=== PATIENT | female | born 1940 | race Caucasian/White ===

== ENCOUNTER 2016-09-01 09:43 | Inpatient (IN) | payer OTHER ==
--- NOTE | 2016-09-01 10:01 | PDOC ---
History of Present Illness - History of Present Illness Initial Comments: 09/01/16 14:32 The patient is a 75 year old female, with a significant past medical history of alzheimer's/dementia, hypercholesterolemia, CAD s/p 2 stents, colon polyps, diverticulosis, and osteoarthritis, who presents to the emergency department with 2 days of cough and fever as per the patients . The patient is a poor historian secondary to her dementia. As per the patients , he reports he has been experiencing similar symptoms prior to his wifes onset 2 days ago, went to his PCP yesterday and given a prescription for azithromycin for both him and his yesterday. As per the patients , his is not aware of person, place or time and does not ambulate without assistance at baseline. He reports her cough x 2 days, but because she is weak she is unable to productively cough. also has symptoms of a cough. She denies shortness of breath, headache and dizziness. She denies chills, nausea, vomit, diarrhea and constipation. She denies dysuria, frequency, urgency and hematuria. Allergies: NKDA PCP - Dr. Hercules <Cathie Mars - Last Filed: 09/01/16 14:32> <Andrea Hoff - Last Filed: 09/02/16 08:22> - General Chief Complaint: SIRS, Suspected/Possible Stated Complaint: FLU LIKE SYMPTOMS Time Seen by Provider: 09/01/16 09:59 Past History <Cathie Mars - Last Filed: 09/01/16 14:32> - Past Medical History Anemia: Yes Cardiac Disorders: Yes (cardiac stents) Dementia: Yes Disorders: Yes (uti) HTN: Yes Hypercholesterolemia: Yes - Surgical History Cardiac Surgery: Yes (stent) Cholecystectomy: Yes (lap ifeanyi) - Psycho/Social/Smoking Cessation Hx Anxiety: No Suicidal Ideation: No Smoking History: Never smoked Have you smoked in the past 12 months: No If you are a former smoker, when did you quit?: 1 year ago Information on smoking cessation initiated: No 'Breaking Loose' booklet given: 10/15/12 Hx Alcohol Use: No Drug/Substance Use Hx: No Substance Use Type: None <Andrea Hoff - Last Filed: 09/02/16 08:22> - Past Medical History Allergies/Adverse Reactions: Allergies Allergy/AdvReac Type Severity Reaction Status Date / Time No Known Allergies Allergy Verified 09/01/16 09:53 Home Medications: Ambulatory Orders Alendronate Na [Fosamax] 70 mg PO Q7D 09/01/16 Ascorbic Acid [Vitamin C -] 500 mg PO DAILY 09/01/16 Aspirin [ASA -] 81 mg PO DAILY 09/01/16 Bisacodyl [Dulcolax] 10 mg PO DAILY 09/01/16 Lisinopril [Zestril] 40 mg PO DAILY 09/01/16 Memantine HCl [Namenda -] 10 mg PO DAILY 09/01/16 Multivitamin [Poly-Vitamin] 1 each PO DAILY 09/01/16 Review of Systems - Review of Systems Able to Perform ROS?: No (unobtainable due to demen) <Cathie Mars - Last Filed: 09/01/16 14:32> *Physical Exam - Vital Signs Last Vital Signs Temp Pulse Resp BP Pulse Ox 101.7 F H 123 H 20 131/85 97 09/01/16 09:54 09/01/16 09:54 09/01/16 09:54 09/01/16 09:54 09/01/16 09:54 - Physical Exam Comments: 09/01/16 14:33 GENERAL: The patient is awake, alert. Nontoxic - in no acute distress. HEAD: Normocephalic, atraumatic. EYES: extraocular movements intact, sclera anicteric, conjunctiva clear. ENT: Normal voice, Moist mucous membranes. NECK: Normal range of motion, supple LUNGS: (+) faint crackles at left base. Breath sounds equal, No wheezes, no rhonchi, HEART: tachycardic, without murmur, rub or gallop. ABDOMEN: Soft, nontender, normoactive bowel sounds. No guarding, no rebound.No CVA tenderness EXTREMITIES: Normal range of motion, no edema. No clubbing or cyanosis. No cords, erythema, or tenderness. NEUROLOGICAL: No facial assymetry, PSYCH: Normal mood, normal affect. SKIN: hot to touch, Dry, normal turgor, <Cathie Mars - Last Filed: 09/01/16 14:32> - Vital Signs Last Vital Signs Temp Pulse Resp BP Pulse Ox 101.7 F H 123 H 20 131/85 97 09/01/16 09:54 09/01/16 09:54 09/01/16 09:54 09/01/16 09:54 09/01/16 09:54 <Andrea Hoff - Last Filed: 09/02/16 08:22> Heart Score/ECG Review - ECG Impressions Comment:: 09/01/16 10:31 Twelve-lead EKG was performed and reviewed by me. There is normal sinus rhythm with a rate of 114 The axis is normal. The intervals are normal. There is normal R wave progression There are no ST or T wave abnormalities. Impression: sinus tachycardia <Andrea Hoff - Last Filed: 09/02/16 08:22> ED Treatment Course - LABORATORY CBC & Chemistry Diagram: 09/01/16 10:00 09/01/16 10:13 - ADDITIONAL ORDERS Additional order review: Laboratory Results 09/01/16 10:30 VBG pH 7.44 H POC VBG pCO2 36.4 L POC VBG pO2 37.9 Mixed VBG HCO3 24.5 09/01/16 10:00 RBC 3.85 MCV 91.3 MCHC 33.0 RDW 14.1 MPV 9.1 Neutrophils % 77.9 Lymphocytes % 5.6 L D Monocytes % 16.0 H Eosinophils % 0.0 D Basophils % 0.5 - RADIOLOGY Radiograph Interpretation: 09/01/16 11:00 CXR was read by Dr. Bergman at 10:15 Impression: No evidence of active pulmonary disease <Cathie Mars - Last Filed: 09/01/16 14:32> - LABORATORY CBC & Chemistry Diagram: 09/01/16 10:00 09/01/16 10:13 - RADIOLOGY Radiology Studies Ordered: Category Date Time Status CHEST X-RAY PORTABLE* [RAD] Stat Radiology 09/01/16 10:00 Ordered <Andrea Hoff - Last Filed: 09/02/16 08:22> Medical Decision Making - Medical Decision Making 09/01/16 14:33 Dr. Rivas was paged at 13:25 requesting a call back for doctor to doctor consult regarding patient admission. Dr. Chandni Tate returned the call on Dr. Rivas's behalf and the patient's case was discussed at 13:33. <Cathie Mars - Last Filed: 09/01/16 14:32> - Medical Decision Making 09/01/16 10:25 75y F hx of advanced dementia, htn, cad s/p 2 stents, HL, presents for fever/ cough. The history is limited from the patient due to her dementia and provided primarily from her . cough x 2 days, dry, on exam pt has some rales at the L base, pt noted febrile to 102 and tachy to 120s. sepsis protocol initiated suspect pna, vs influenza will ck cxr, ekg, influenza, labs will obtain UA to r/o UTI A portion of this note was documented by scribe services under my direction. I have reviewed the details of the note, within reason, and agree with the documentation with the following case summary and management plan written by me 09/01/16 12:52 labs reviewed lactic acid normal pt influenza + and UA + for UTI will give ctx, tamiflu will admit for further managment 09/01/16 13:[address] tate for inflenza and uti agreed wit hadmission for further management stable for med surg Case discussed in detail with admitting physician including history, physical exam and ancillary studies. Admitting physician has assumed care for the patient, will follow all pending diagnostics and will complete the evaluation and treatment. CRITICAL CARE DOCUMENTATION: I spent ~40 minutes of Critical Care time, excluding separately billable procedures, involving high complexity decision making to assess, manipulate and support vital system function(s) to treat single or multiple vital organ system failure and/or to prevent further life threatening deterioration of the patient' s condition. <Andrea Hoff - Last Filed: 09/02/16 08:22> *DC/Admit/Observation/Transfer - Attestations Scribe Attestion: 09/01/16 11:02 Documentation prepared by Cathie Mars, acting as biomedical engineering aide for Andrea Hoff MD <Cathie Mars - Last Filed: 09/01/16 14:32> - Discharge Dispostion Admit: Yes <Andrea Hoff - Last Filed: 09/02/16 08:22> Diagnosis at time of Disposition: Influenza A Sepsis Qualifiers: Sepsis type: sepsis due to unspecified organism Qualified Code(s): A41.9 - Sepsis, unspecified organism Urinary tract infection Qualifiers: Urinary tract infection type: site unspecified Hematuria presence: with hematuria Qualified Code(s): N39.0 - Urinary tract infection, site not specified - Discharge Dispostion Condition at time of disposition: Stable - Referrals
[2016-09-01 10:35] LABS: BASOPHIL 0.5 % (0-2.0); MCH 30.1 pg (25.7-33.7); MEAN CELL VOLUME 91.3 fl (80-96); MEAN PLT VOLUME 9.1 fl (7.5-11.1); NEUTROPHILS 77.9 % (42.8-82.8); PLATELET COUNT 270 K/MM3 (134-434); RDW 14.1 % (11.6-15.6); WHITE BLOOD COUNT 11.7 K/mm3 (4.0-10.0)
[2016-09-01 10:36] LABS: VENOUS BLOOD GAS HCO3 24.5 meq/L (19-25); VENOUS PH 7.44 (7.32-7.42)
[2016-09-01 11:04] LABS: ALBUMIN 3.8 g/dl (3.4-5.0); ANION GAP 10 (8-16); BILIRUBIN,TOTAL 0.4 mg/dL (0.2-1.0); CALCIUM 9.1 mg/dL (8.5-10.1); CO2 25 mmol/L (21-32); CREATININE 1.3 mg/dL (0.55-1.02); GLUCOSE,RANDOM 153 mg/dL (74-106); SGOT/AST 20 U/L (15-37); SGPT/ALT 21 U/L (12-78); TOT PROT 7.8 g/dl (6.4-8.2)
[2016-09-01 11:07] LABS: ALK PHOS 82 U/L (45-117); TROPONIN I < 0.02 ng/ml (0.00-0.05)
[2016-09-01 11:20] LABS: INR 1.23 (0.82-1.09); PROTHROMBIN TIME (PATIENT) 13.6 SEC (9.98-11.88)
[2016-09-01 11:22] LABS: ACTIVATED PTT 32.8 SECONDS (26.9-34.4)
--- NOTE | 2016-09-01 11:37 | EKG ---
Test Reason : Blood Pressure : / mmHG Vent. Rate : 114 BPM Atrial Rate : 114 BPM P-R Int : 160 ms QRS Dur : 082 ms QT Int : 322 ms P-R-T Axes : 055 004 062 degrees QTc Int : 443 ms SINUS TACHYCARDIA OTHERWISE NORMAL ECG WHEN COMPARED WITH ECG OF 27-JUL-2013 09:11, NO SIGNIFICANT CHANGE WAS FOUND Confirmed by MYLA CHRISTOPHER MD ([id number]) on 09/01/2016 11:37:39 AM Referred By: Confirmed By:MYLA CHRISTOPHER MD
[2016-09-01] MEDS ORDERED: ACETAMINOPHEN 1000 MG/100 ML VIAL (NON FORMULARY) IVPB ONE (11:54)
[2016-09-01] MEDS ORDERED: SODIUM CHLORIDE 500 ML IV STA (11:55)
[2016-09-01] MEDS ORDERED: ACETAMINOPHEN INJECTION 100 ML IVPB ONE (12:08)
[2016-09-01 12:21] LABS: URINE APPEARANCE CLEAR; URINE BILIRUBIN NEGATIVE (NEGATIVE); URINE COLOR LT. YELLOW; URINE GLUCOSE (UA) NEGATIVE (NEGATIVE); URINE KETONE NEGATIVE (NEGATIVE); URINE PROTEIN NEGATIVE (NEGATIVE); URINE UROBILINOGEN 0.2 E.U/dl E.U./dl (0.2-1.0)
[2016-09-01 12:23] LABS: URINE BLOOD 3+ (NEGATIVE); URINE LEUK ESTERASE 1+ (NEGATIVE); URINE NITRITE POSITIVE (NEGATIVE)
[2016-09-01 12:43] LABS: URINE BACTERIA MANY /hpf (NONE SEEN)
[2016-09-01 12:47] LABS: URINE RBC 0-3 /hpf (0-3); URINE WBC 20-30 /hpf (3-5)
[2016-09-01 12:48] LABS: URINE AMORPHOUS SEDIMENT FEW URATES
[2016-09-01] MEDS ORDERED: OSELTAMIVIR PHOSPHATE 75 MG CAPSULE PO ONE (12:52)
[2016-09-01] MEDS ORDERED: CEFTRIAXONE 1 GM in DEXTROSE 5%-WATER - 50 ML IVPB ONE (12:52)
[2016-09-01] MEDS ORDERED: OSELTAMIVIR PHOSPHATE 75 MG CAPSULE ONE (12:57)
[2016-09-01] MEDS ORDERED: CEFTRIAXONE 50 ML ONE (12:57)
[2016-09-01] MEDS ORDERED: ALBUTEROL SO4 2.5/IPRATROPIUM 0.5 INH SOL 3 ML VIAL.NEB. NEB PRN (13:43)
[2016-09-01] MEDS: SODIUM CHLORIDE 0.45% 1,000 ML IV SCH (14:35)
[2016-09-01 16:44] VITALS: BMI 22.8
[2016-09-01] MEDS: OSELTAMIVIR PHOSPHATE 30 MG CAPSULE PO SCH (21:34)
[2016-09-02] MEDS ORDERED: ACETAMINOPHEN 325 MG TABLET (FP) PO PRN (08:20)
--- NOTE | 2016-09-02 08:24 | HP ---
Admitting History and Physical - Primary Care Physician PCP: Chuck Hercules - Past Medical History ...: No - Advance Directives Advance Directives: Yes: Health Care Proxy - Smoking History Smoking history: Never smoked Have you smoked in the past 12 months: No If you are a former smoker, when did you quit?: 1 year ago - Alcohol/Substance Use Hx Alcohol Use: No <Anna Rivas - Last Filed: 09/02/16 08:23> - Admission History of Present Illness: The patient is a 75-year-old woman with a significant past medical history of alzheimer's/dementia, hypercholesterolemia, coronary artery disease status post 2 stents, colon polyps, diverticulosis, and osteoarthritis, who presented to the emergency department yesterday with 2 day history of a weak non-productive cough and fever as per the patients . At baseline, the patient is not aware of person, place or time and does not ambulate without assistance. History was obtained by patient's and is limited as patient's suffers also from dementia. He also reports experiencing similar symptoms. Patient found to have Influenza, as well as possible UTI. Patient also had a fever of 102 in the Emergency Room. Patient also was dehydrated. Patient was started on fluid, antibiotics as well as Tamiflu. Patient seen and examined today. Chart reviewed. Comfortable. Not in distress. Poor historian. History Source: Patient Limitations to Obtaining History: Dementia <Vera Webb - Last Filed: 09/02/16 09:39> Home Medications <Anna Rivas - Last Filed: 09/02/16 08:23> <Vera Webb - Last Filed: 09/02/16 09:39> - Allergies Allergies/Adverse Reactions: Allergies Allergy/AdvReac Type Severity Reaction Status Date / Time No Known Allergies Allergy Verified 09/01/16 09:53 - Home Medications Home Medications: Ambulatory Orders Alendronate Na [Fosamax] 70 mg PO Q7D 09/01/16 Ascorbic Acid [Vitamin C -] 500 mg PO DAILY 09/01/16 Aspirin [ASA -] 81 mg PO DAILY 09/01/16 Bisacodyl [Dulcolax] 10 mg PO DAILY 09/01/16 Lisinopril [Zestril] 40 mg PO DAILY 09/01/16 Memantine HCl [Namenda -] 10 mg PO DAILY 09/01/16 Multivitamin [Poly-Vitamin] 1 each PO DAILY 09/01/16 Review of Systems Unable to obtain ROS, reason: Clincal Condition. See HP <Vera Webb - Last Filed: 09/02/16 09:39> Physical Examination Vital Signs: Vital Signs Temperature 100.6 F H 09/02/16 06:00 Pulse Rate 90 09/02/16 06:00 Respiratory Rate 20 09/02/16 06:00 Blood Pressure 133/74 09/02/16 06:00 O2 Sat by Pulse Oximetry (%) 99 09/02/16 07:59 <Anna Rivas - Last Filed: 09/02/16 08:23> Vital Signs: Vital Signs Temperature 100.6 F H 09/02/16 06:00 Pulse Rate 90 09/02/16 06:00 Respiratory Rate 20 09/02/16 06:00 Blood Pressure 133/74 09/02/16 06:00 O2 Sat by Pulse Oximetry (%) 99 09/02/16 07:59 Constitutional: Yes: No Distress, Calm HENT: Yes: Other (Throat is Congested.) Neck: Yes: Supple Cardiovascular: Yes: Regular Rate and Rhythm Respiratory: Yes: CTA Bilaterally Gastrointestinal: Yes: Soft Edema: No Neurological: Yes: Other (Awake.) Labs: CBC, BMP 09/02/16 08:15 09/02/16 08:15 <TraceyVera - Last Filed: 09/02/16 09:39> Imaging - Results Chest X-ray: Report Reviewed EKG: Report Reviewed <TraceyVera - Last Filed: 09/02/16 09:39> Problem List - Problems (1) Influenza A Code(s): J10.1 - FLU DUE TO OTH IDENT INFLUENZA VIRUS W OTH RESP MANIFEST (2) Urinary tract infection Code(s): N39.0 - URINARY TRACT INFECTION, SITE NOT SPECIFIED Qualifiers: Urinary tract infection type: site unspecified Hematuria presence: with hematuria Qualified Code(s): N39.0 - Urinary tract infection, site not specified (3) Dementia Code(s): F03.90 - UNSPECIFIED DEMENTIA WITHOUT BEHAVIORAL DISTURBANCE <Vera Webb - Last Filed: 09/02/16 09:39> Assessment/Plan - Tamiflu. - Antibiotics. - Hydration. - Droplet precautions. - DVT Prophylaxis. - Follow up cultures. - Will follow. Documentation prepared by Vera Webb, acting as a medical insurance claims processor for Anna Rivas MD. <Vera Webb - Last Filed: 09/02/16 09:39>
[2016-09-02 08:42] LABS: BASOPHIL 0.7 % (0-2.0); EOSINOPHIL 0.1 % (0-4.5); MCH 30.4 pg (25.7-33.7); MCHC 33.5 g/dl (32.0-36.0); MEAN CELL VOLUME 90.8 fl (80-96); MEAN PLT VOLUME 9.1 fl (7.5-11.1); NEUTROPHILS 66.8 % (42.8-82.8); PLATELET COUNT 214 K/MM3 (134-434); RDW 13.8 % (11.6-15.6); WHITE BLOOD COUNT 7.8 K/mm3 (4.0-10.0)
[2016-09-02 09:00] LABS: ALBUMIN 3.3 g/dl (3.4-5.0); BILIRUBIN,TOTAL 0.3 mg/dL (0.2-1.0); CALCIUM 8.4 mg/dL (8.5-10.1); TOT PROT 6.5 g/dl (6.4-8.2)
[2016-09-02] MEDS ORDERED: PT OWN MED DRAWER 7, Y5N ONE (09:11)
[2016-09-02] MEDS: OSELTAMIVIR PHOSPHATE 30 MG CAPSULE PO SCH ×2 (09:18→21:02)
[2016-09-02] MEDS: HEPARIN NA (PORCINE) 5,000 UNITS/ML 1ML VIAL SQ SCH ×2 (09:20→21:02)
[2016-09-02] MEDS: CEFTRIAXONE 50 ML IVPB SCH (09:20)
[2016-09-02] MEDS ORDERED: ACETAMINOPHEN 650 MG SUPP.RECT PR PRN (09:40)
[2016-09-02] MEDS: SODIUM CHLORIDE 0.45% 1,000 ML IV SCH (11:28)
[2016-09-03] MEDS: SODIUM CHLORIDE 0.45% 1,000 ML IV SCH (04:24)
[2016-09-03] MEDS ORDERED: PT OWN MED DRAWER 7, Y5N ONE ×2 (09:45→23:15)
[2016-09-03] MEDS: CEFTRIAXONE 50 ML IVPB SCH (09:53)
[2016-09-03] MEDS: OSELTAMIVIR PHOSPHATE 30 MG CAPSULE PO SCH ×2 (09:55→23:27)
[2016-09-03] MEDS: HEPARIN NA (PORCINE) 5,000 UNITS/ML 1ML VIAL SQ SCH ×2 (09:57→23:27)
--- NOTE | 2016-09-03 12:05 | PN ---
Progress Note, Physician Chief Complaint: confused no distress - Current Medication List Current Medications: Active Medications Acetaminophen (Tylenol -) 650 mg PO Q4H PRN PRN Reason: FEVER OR PAIN Last Admin: 09/02/16 09:17 Dose: 650 mg Acetaminophen (Tylenol Suppository -) 650 mg [place] Q6H PRN PRN Reason: FEVER OR PAIN Albuterol/Ipratropium (Duoneb -) 1 amp NEB TIDR PRN PRN Reason: ASTHMA Heparin Sodium (Porcine) (Heparin -) 5,000 unit SQ BID [facility] Last Admin: 09/03/16 09:57 Dose: 5,000 unit Ceftriaxone Sodium (Rocephin 1gm Ivpb (Pre-Docked)) 50 mls @ 100 mls/hr IVPB DAILY [facility] Last Admin: 09/03/16 09:53 Dose: 100 mls/hr Sodium Chloride (1/2 Normal Saline) 1,000 mls @ 75 mls/hr IV ASDIR [facility] Last Admin: 09/03/16 04:24 Dose: 75 mls/hr Oseltamivir Phosphate (Tamiflu -) 30 mg PO BID [facility] Stop: 09/05/16 22:01 Last Admin: 09/03/16 09:55 Dose: 30 mg - Objective Vital Signs: Vital Signs Temperature 98.2 F 09/03/16 07:54 Pulse Rate 85 09/03/16 07:54 Respiratory Rate 18 09/03/16 07:54 Blood Pressure 125/66 09/03/16 07:54 O2 Sat by Pulse Oximetry (%) 99 09/03/16 09:00 Constitutional: Yes: No Distress Cardiovascular: Yes: Regular Rate and Rhythm Respiratory: Yes: Diminished Gastrointestinal: Yes: Normal Bowel Sounds, Soft. No: Tenderness Edema: No Labs: CBC, BMP 09/02/16 08:15 09/02/16 08:15 INR, PTT INR 1.23 (0.82-1.09) H 09/01/16 10:26 Problem List - Problems (1) Influenza A Code(s): J10.1 - FLU DUE TO OTH IDENT INFLUENZA VIRUS W OTH RESP MANIFEST (2) Sepsis Code(s): A41.9 - SEPSIS, UNSPECIFIED ORGANISM Qualifiers: Sepsis type: sepsis due to unspecified organism Qualified Code(s): A41.9 - Sepsis, unspecified organism (3) Urinary tract infection Code(s): N39.0 - URINARY TRACT INFECTION, SITE NOT SPECIFIED Qualifiers: Urinary tract infection type: acute cystitis Hematuria presence: with hematuria Qualified Code(s): N30.01 - Acute cystitis with hematuria (4) Dementia Code(s): F03.90 - UNSPECIFIED DEMENTIA WITHOUT BEHAVIORAL DISTURBANCE Assessment/Plan PLAN On iv antibiotics Tamiflu Pt is at baseline mental status OOB continue with meds She is eating and hydrating well, dc fluids
[2016-09-04] MEDS ORDERED: PT OWN MED DRAWER 7, Y5N ONE ×2 (08:57→21:02)
[2016-09-04] MEDS: HEPARIN NA (PORCINE) 5,000 UNITS/ML 1ML VIAL SQ SCH ×2 (08:59→21:07)
[2016-09-04] MEDS: OSELTAMIVIR PHOSPHATE 30 MG CAPSULE PO SCH ×2 (08:59→21:07)
[2016-09-04] MEDS: CEFTRIAXONE 50 ML IVPB SCH (08:59)
--- NOTE | 2016-09-04 09:01 | PN ---
Progress Note, Physician Chief Complaint: confused no distress has good appetite no complaints - Current Medication List Current Medications: Active Medications Acetaminophen (Tylenol -) 650 mg PO Q4H PRN PRN Reason: FEVER OR PAIN Last Admin: 09/02/16 09:17 Dose: 650 mg Acetaminophen (Tylenol Suppository -) 650 mg [place] Q6H PRN PRN Reason: FEVER OR PAIN Albuterol/Ipratropium (Duoneb -) 1 amp NEB TIDR PRN PRN Reason: ASTHMA Heparin Sodium (Porcine) (Heparin -) 5,000 unit SQ BID [facility] Last Admin: 09/03/16 23:27 Dose: 5,000 unit Ceftriaxone Sodium (Rocephin 1gm Ivpb (Pre-Docked)) 50 mls @ 100 mls/hr IVPB DAILY [facility] Last Admin: 09/03/16 09:53 Dose: 100 mls/hr Oseltamivir Phosphate (Tamiflu -) 30 mg PO BID [facility] Stop: 09/05/16 22:01 Last Admin: 09/03/16 23:27 Dose: 30 mg - Objective Vital Signs: Vital Signs Temperature 97.4 F L 09/04/16 06:22 Pulse Rate 86 09/04/16 06:22 Respiratory Rate 20 09/04/16 06:22 Blood Pressure 120/64 09/04/16 06:22 O2 Sat by Pulse Oximetry (%) 99 09/03/16 22:00 Constitutional: Yes: No Distress Cardiovascular: Yes: Regular Rate and Rhythm Respiratory: Yes: Diminished Gastrointestinal: Yes: Normal Bowel Sounds, Soft. No: Distention, Tenderness Edema: No Neurological: Yes: Confusion Labs: CBC, BMP 09/02/16 08:15 09/02/16 08:15 INR, PTT INR 1.23 (0.82-1.09) H 09/01/16 10:26 Assessment/Plan PLAN On iv antibiotics Tamiflu Pt is at baseline mental status OOB continue with meds Heparin sc for DVT prophylaxis physical therapy evaluation
--- NOTE | 2016-09-05 08:23 | PN ---
Progress Note (short form) - Note Progress Note: Subjective Patient seen and examined. Chart reviewed. Still coughing. Having low grade fever. Eating OK Awake/Confused. Objective Last Vital Signs Temp Pulse Resp BP Pulse Ox 99.7 F H 81 20 138/73 98 09/05/16 06:00 09/05/16 06:00 09/05/16 06:00 09/05/16 06:00 09/04/16 21:00 CBC, BMP 09/02/16 08:15 09/02/16 08:15 Physical Exam Constitutional: Yes: No Distress Cardiovascular: Yes: Regular Rate and Rhythm Respiratory: Yes: Diminished Gastrointestinal: Yes: Normal Bowel Sounds, Soft. No: Distention, Tenderness Edema: No Neurological: Yes: Confusion Assessment and Plan Continue iv antibiotics Tamiflu Pt is at baseline mental status OOB continue with meds Heparin sc for DVT prophylaxis physical therapy evaluation Continue droplet precuations. Check labs today. Will follow. Documentation prepared by Kiah Toussaint, acting as a biomedical equipment support specialist for Anna Rivas MD.
[2016-09-05] MEDS: OSELTAMIVIR PHOSPHATE 30 MG CAPSULE PO SCH ×2 (10:03→21:07)
[2016-09-05] MEDS: CEFTRIAXONE 50 ML IVPB SCH (10:03)
[2016-09-05] MEDS: HEPARIN NA (PORCINE) 5,000 UNITS/ML 1ML VIAL SQ SCH ×2 (10:03→21:07)
[2016-09-05 11:19] LABS: BASOPHIL 0.8 % (0-2.0); EOSINOPHIL 0.1 % (0-4.5); MCH 30.3 pg (25.7-33.7); MCHC 32.8 g/dl (32.0-36.0); MEAN CELL VOLUME 92.1 fl (80-96); MEAN PLT VOLUME 9.9 fl (7.5-11.1); NEUTROPHILS 75.8 % (42.8-82.8); PLATELET COUNT 244 K/MM3 (134-434); WHITE BLOOD COUNT 9.8 K/mm3 (4.0-10.0)
[2016-09-05 11:21] LABS: ALBUMIN 3.2 g/dl (3.4-5.0); BILIRUBIN,TOTAL 0.3 mg/dL (0.2-1.0)
[2016-09-05] MEDS ORDERED: PT OWN MED DRAWER 7, Y5N ONE (21:02)
--- NOTE | 2016-09-06 09:19 | PN ---
Progress Note, Physician Chief Complaint: confused no distress has good appetite no complaints spoke with Dr perales-- pt's PMD-- she is AAOx1 very confused at baseline She requires total care Did not do well at all during PT - Current Medication List Current Medications: Active Medications Acetaminophen (Tylenol -) 650 mg PO Q4H PRN PRN Reason: FEVER OR PAIN Last Admin: 09/02/16 09:17 Dose: 650 mg Acetaminophen (Tylenol Suppository -) 650 mg [place] Q6H PRN PRN Reason: FEVER OR PAIN Albuterol/Ipratropium (Duoneb -) 1 amp NEB TIDR PRN PRN Reason: ASTHMA Heparin Sodium (Porcine) (Heparin -) 5,000 unit SQ BID [facility] Last Admin: 09/05/16 21:07 Dose: 5,000 unit Ceftriaxone Sodium (Rocephin 1gm Ivpb (Pre-Docked)) 50 mls @ 100 mls/hr IVPB DAILY [facility] Last Admin: 09/05/16 10:03 Dose: 100 mls/hr - Objective Vital Signs: Vital Signs Temperature 98.4 F 09/06/16 06:00 Pulse Rate 69 09/06/16 06:00 Respiratory Rate 20 09/06/16 06:00 Blood Pressure 133/57 09/06/16 06:00 O2 Sat by Pulse Oximetry (%) 96 09/05/16 08:00 Constitutional: Yes: No Distress Cardiovascular: Yes: Regular Rate and Rhythm Respiratory: Yes: Diminished Gastrointestinal: Yes: Normal Bowel Sounds, Soft. No: Abdomen, Obese, Distention, Tenderness Edema: No Labs: CBC, BMP 09/05/16 10:45 09/05/16 10:45 INR, PTT INR 1.23 (0.82-1.09) H 09/01/16 10:26 Problem List - Problems (1) Influenza A Code(s): J10.1 - FLU DUE TO OTH IDENT INFLUENZA VIRUS W OTH RESP MANIFEST (2) Sepsis Code(s): A41.9 - SEPSIS, UNSPECIFIED ORGANISM Qualifiers: Sepsis type: sepsis due to unspecified organism Qualified Code(s): A41.9 - Sepsis, unspecified organism (3) Urinary tract infection Code(s): N39.0 - URINARY TRACT INFECTION, SITE NOT SPECIFIED Qualifiers: Urinary tract infection type: acute cystitis Hematuria presence: with hematuria Qualified Code(s): N30.01 - Acute cystitis with hematuria (4) Dementia Code(s): F03.90 - UNSPECIFIED DEMENTIA WITHOUT BEHAVIORAL DISTURBANCE Assessment/Plan PLAN On iv antibiotics completed Tamiflu Pt is at baseline mental status OOB continue with meds Heparin sc for DVT prophylaxis physical therapy evaluation left message for pt's son in [place]-- Jasen Dutton -- [phone] will need to discuss about pt's dc plan
[2016-09-06] MEDS: HEPARIN NA (PORCINE) 5,000 UNITS/ML 1ML VIAL SQ SCH ×2 (10:18→21:19)
[2016-09-06] MEDS: CEFTRIAXONE 50 ML IVPB SCH (10:18)
--- NOTE | 2016-09-07 09:39 | DS ---
Physical Examination Vital Signs: Vital Signs Temperature 99.2 F 09/07/16 05:51 Pulse Rate 88 09/07/16 05:51 Respiratory Rate 18 09/07/16 05:51 Blood Pressure 136/63 09/07/16 05:51 O2 Sat by Pulse Oximetry (%) 95 09/06/16 21:00 Constitutional: Yes: No Distress, Calm Cardiovascular: Yes: Regular Rate and Rhythm Respiratory: Yes: CTA Bilaterally Gastrointestinal: Yes: Normal Bowel Sounds, Soft, Abdomen, Obese. No: Distention, Tenderness Edema: No Labs: CBC, BMP 09/05/16 10:45 09/05/16 10:45 Discharge Summary Reason For Visit: UTI,INFLUENZA,SEPSIS Current Active Problems Influenza A (Acute) Sepsis (Acute) Urinary tract infection (Acute) Hospital Course: Admitted for UTI and Influenza She was started on antibiotics for UTI and tamiflu-- completed Tamiflu She has advanced dementia which is worsening Physical therapy evaluated pt- needs total assistance. Short term rehab recommended , but pt's significant other and son had decided to have her be discharged home, resume her services, [employer]. She will also need home physical therapy. I have sent PO antibiotics to pharmacy for UTI-- she will need to follow up with Dr Hercules in 2 weeks, stable for dc home. Condition: Improved - Instructions Referrals: Chuck Hercules MD [Primary Care Provider] - Disposition: HOME - Home Medications Comprehensive Discharge Medication List: Ambulatory Orders Alendronate Na [Fosamax (Weekly)] 70 mg PO Q7D 09/01/16 Ascorbic Acid [Vitamin C -] 500 mg PO DAILY 09/01/16 Aspirin [ASA -] 81 mg PO DAILY 09/01/16 Bisacodyl [Dulcolax] 10 mg PO DAILY 09/01/16 Lisinopril [Zestril] 40 mg PO DAILY 09/01/16 Memantine HCl [Namenda -] 10 mg PO DAILY 09/01/16 Multivitamin [Poly-Vitamin] 1 each PO DAILY 09/01/16 Cefuroxime Axetil [Ceftin -] 250 mg PO BID #8 tablet 09/07/16
[2016-09-07] MEDS: HEPARIN NA (PORCINE) 5,000 UNITS/ML 1ML VIAL SQ SCH (10:40)
[2016-09-07] MEDS: CEFTRIAXONE 50 ML IVPB SCH (10:40)
[2016-09-07 11:46] VITALS: BP 134/93; PULSE 95; TEMP 98.2
== END 2016-09-07 11:30 | disposition home or self-care (01) | DRG 872 ==
LOC: SUPCPDRO 09:43 → JER 09:43 → JERBED 14:10 → J6S 17:30
PROVIDERS: ADMIT Internal Medicine; ATTEND Internal Medicine
DX: A41.9 Sepsis, unspecified organism (principal); N39.0 Urinary tract infection, site not specified; G30.9 Alzheimer's disease, unspecified; F02.80 Dementia in other diseases classified elsewhere, unspecified severity, without behavioral disturbance, psychotic disturbance, mood disturbance, and anxiety; J11.1 Influenza due to unidentified influenza virus with other respiratory manifestations; E78.00 Pure hypercholesterolemia, unspecified; I25.10 Atherosclerotic heart disease of native coronary artery without angina pectoris; K63.5 Polyp of colon; K57.90 Diverticulosis of intestine, part unspecified, without perforation or abscess without bleeding; M19.90 Unspecified osteoarthritis, unspecified site; Z95.5 Presence of coronary angioplasty implant and graft
CPT/HCPCS: 36415; 71010-TC; 80053; 81003; 81015; 82550; 82803; 83605; 84484; 85025; 85610; 85730; 86850; 86900; 86901; 87040; 87086; 87186; 87804; 93005; 93010; 97116-GP; 97161-GP; 99283-25; J1644

== ENCOUNTER 2017-02-24 09:55 | Inpatient (IN) | payer OTHER ==
[2017-02-24] MEDS ORDERED: ACETAMINOPHEN 1000 MG/100 ML VIAL (NON FORMULARY) IVPB ONE (10:14)
[2017-02-24] MEDS ORDERED: SODIUM CHLORIDE 1,000 ML IV STA (10:14)
--- NOTE | 2017-02-24 10:16 | PDOC ---
Attending Attestation - Resident Resident Name: Judy Dean - ED Attending Attestation I have performed the following: I have examined & evaluated the patient, The case was reviewed & discussed with the resident, I agree w/resident's findings & plan, Exceptions are as noted - HPI HPI: Fever from home 02/24/17 11:34 - Physicial Exam PE: Non Toxic, VSS 02/24/17 11:35 - Medical Decision Making 02/24/17 11:[address] Dean's Assessment and Plan
[2017-02-24] MEDS ORDERED: ACETAMINOPHEN INJECTION 100 ML IVPB ONE (10:23)
--- NOTE | 2017-02-24 10:56 | PDOC ---
History of Present Illness - General Chief Complaint: Tachycardia Stated Complaint: FEVER Time Seen by Provider: 02/24/17 10:05 History Source: Family Exam Limitations: Dementia - History of Present Illness Initial Comments: 76yo F with PMH of dementia, UTI, osteoporosis presents c/o ams, fever, cough. Pt's son at bedside provided history, as pt has dementia. Pt has had AMS for 3- 4 days. Yesterday symptoms of non-productive cough, sneezing and fever worsened. Pt's family tried to get an antibiotic for pt a week ago, and were finally able to fill a prescription for Ceftin yesterday. Pt was last admitted to hospital in August 2016 for UTI/sepsis and pt's symptoms are similar today as compared to that admission per pt's son. Pt's family speaks Algerian, pen and pencil repairer was used. 02/24/17 10:48 Associated Symptoms: reports: cough, fever/chills. denies: diaphoresis Past History - Past Medical History Allergies/Adverse Reactions: Allergies Allergy/AdvReac Type Severity Reaction Status Date / Time No Known Allergies Allergy Verified 02/24/17 10:49 Home Medications: Ambulatory Orders Alendronate Na [Fosamax (Weekly)] 70 mg PO Q7D 09/01/16 Ascorbic Acid [Vitamin C -] 500 mg PO DAILY 09/01/16 Aspirin [ASA -] 81 mg PO DAILY 09/01/16 Bisacodyl [Dulcolax] 10 mg PO DAILY 09/01/16 Lisinopril [Zestril] 40 mg PO DAILY 09/01/16 Memantine HCl [Namenda -] 10 mg PO DAILY 09/01/16 Multivitamin [Poly-Vitamin] 1 each PO DAILY 09/01/16 Cefuroxime Axetil [Ceftin -] 250 mg PO BID #8 tablet 09/07/16 Anemia: Yes Cardiac Disorders: Yes (cardiac stents) Dementia: Yes GI Disorders: Yes (colon polyps, diverticulosis) Disorders: Yes (uti) HTN: Yes Hypercholesterolemia: Yes Other medical history: osteoporosis - Surgical History Cardiac Surgery: Yes (stent) Cholecystectomy: Yes (lap ifeanyi) - Psycho/Social/Smoking Cessation Hx Anxiety: No Suicidal Ideation: No Smoking History: Never smoked Have you smoked in the past 12 months: No 'Breaking Loose' booklet given: 04/29/13 Hx Alcohol Use: No Drug/Substance Use Hx: No Substance Use Type: None Hx Substance Use Treatment: No Review of Systems - Review of Systems Able to Perform ROS?: No (dementia) *Physical Exam - Physical Exam General Appearance: Yes: Nourished, Appropriately Dressed, Mild Distress HEENT: positive: EOMI, Normal Voice. negative: Pale Conjunctivae, Scleral Icterus (R), Scleral Icterus (L), Rhinorrhea Neck: positive: Trachea midline, Supple. negative: Lymphadenopathy (R), Lymphadenopathy (L) Respiratory/Chest: positive: Lungs Clear, Normal Breath Sounds. negative: Respiratory Distress, Accessory Muscle Use Cardiovascular: positive: Regular Rhythm, S1, S2, Tachycardia. negative: Murmur Gastrointestinal/Abdominal: positive: Tenderness (Left upper and lower abdomen tender to palpation - suffers chronic constipation per son). negative: Distended, Guarding, Rebound, Mass Extremity: positive: Normal Inspection. negative: Swelling, Calf Tenderness, Erythema Integumentary: positive: Dry, Warm. negative: Rash Neurologic: positive: Alert, Confused, Disoriented ED Treatment Course - LABORATORY CBC & Chemistry Diagram: 02/24/17 10:22 02/24/17 11:00 - RADIOLOGY Radiology Studies Ordered: Category Date Time Status CHEST X-RAY PORTABLE* [RAD] Stat Radiology 02/24/17 10:14 Ordered Medical Decision Making - Medical Decision Making 76yo F with PMH of dementia, UTI, osteoporosis presents c/o AMS, fever, cough. History obtained from son with use of a pen and pencil repairer, Algerian speaking. SIRS x 2 at this point with temperature of 101.5 and HR of 96. Pt last admitted to this hospital in August 2016 for UTI/sepsis, and son reports similar symptoms today. CBC with diff, CMP, lactic acid, blood cultures, VBG, INR, Ptt UA, urine culture CXR EKG - reveals normal rhythm tachycardia Tylenol 1,000mg IVPB for fever NS 1 L bolus given 02/24/17 11:03 02/24/17 11:14 O2 sat was 92% at 10:38am vitals check. O2 sat is now 100%. 02/24/17 13:30 CXR reveals some central crowding, no significant interval change. CBC with diff -> leukocytosis 12.0 lactic acid wnl UA (+) for UTI -> Rocephin 1g IVPB given PCP: Dr. Hercules -> admits to Dr. Chandni Rosas Pt to be admitted to med-surg inpatient for sepsis x 3 (tachycardia, wbc, fever , uti). Dr. Rosas contacted and accepted admission. *DC/Admit/Observation/Transfer Diagnosis at time of Disposition: Sepsis, Urinary tract infection - Discharge Dispostion Condition at time of disposition: Guarded Admit: Yes
[2017-02-24 11:01] VITALS: BMI 21.2
[2017-02-24 11:08] LABS: BASOPHIL 0.5 % (0-2.0); EOSINOPHIL 0.1 % (0-4.5); MCH 28.3 pg (25.7-33.7); MCHC 32.5 g/dl (32.0-36.0); NEUTROPHILS 75.7 % (42.8-82.8); PLATELET COUNT 266 K/MM3 (134-434); RDW 17.1 % (11.6-15.6)
[2017-02-24 11:16] LABS: URINE APPEARANCE CLOUDY; URINE BILIRUBIN NEGATIVE (NEGATIVE); URINE BLOOD 2+ (NEGATIVE); URINE COLOR YELLOW; URINE GLUCOSE (UA) NEGATIVE (NEGATIVE); URINE KETONE NEGATIVE (NEGATIVE); URINE NITRITE POSITIVE (NEGATIVE); URINE PROTEIN NEGATIVE (NEGATIVE); URINE UROBILINOGEN NEGATIVE mg/dL (0.2-1.0)
[2017-02-24 11:21] LABS: URINE LEUK ESTERASE 3+ (NEGATIVE)
[2017-02-24 11:21] LABS: VENOUS BLOOD GAS HCO3 25.1 meq/L (19-25); VENOUS PH 7.43 (7.32-7.42)
[2017-02-24 11:23] LABS: URINE MUCUS RARE; URINE RBC 38 /hpf (0-3); URINE WBC 477 /hpf (3-5)
[2017-02-24 11:35] LABS: INR 1.18 (0.82-1.09)
[2017-02-24 11:38] LABS: ACTIVATED PTT 28.8 SECONDS (26.9-34.4)
[2017-02-24] MEDS ORDERED: CEFTRIAXONE 1 GM in DEXTROSE 5%-WATER - 50 ML IVPB ONE (11:40)
[2017-02-24] MEDS ORDERED: CEFTRIAXONE 50 ML ONE (11:44)
[2017-02-24 11:57] LABS: ALBUMIN 3.9 g/dl (3.4-5.0); ALK PHOS 103 U/L (45-117); ANION GAP 11 (8-16); BILIRUBIN,TOTAL 0.4 mg/dL (0.2-1.0); CALCIUM 9.5 mg/dL (8.5-10.1); CO2 26 mmol/L (21-32); CREATININE 1.2 mg/dL (0.55-1.02); GLUCOSE,RANDOM 138 mg/dL (74-106); SGOT/AST 15 U/L (15-37); SGPT/ALT 27 U/L (12-78)
[2017-02-24] MEDS: POTASSIUM CHLORIDE 10 MEQ in SODIUM CHLORIDE 0.45% 1,000 ML IVPB SCH (18:46)
[2017-02-24] MEDS ORDERED: LISINOPRIL 20 MG TABLET (FP) PO ONE (19:45)
[2017-02-25] MEDS: POTASSIUM CHLORIDE 10 MEQ in SODIUM CHLORIDE 0.45% 1,000 ML IVPB SCH ×2 (04:07→06:59)
--- NOTE | 2017-02-25 09:27 | EKG ---
Test Reason : Blood Pressure : / mmHG Vent. Rate : 106 BPM Atrial Rate : 106 BPM P-R Int : 146 ms QRS Dur : 082 ms QT Int : 328 ms P-R-T Axes : 051 -03 044 degrees QTc Int : 435 ms SINUS TACHYCARDIA OTHERWISE NORMAL ECG WHEN COMPARED WITH ECG OF 01-SEP-2016 10:11, NO SIGNIFICANT CHANGE WAS FOUND Confirmed by MD SHEA, NICHOLAS ([id number]) on 02/25/2017 9:26:55 AM Referred By: Confirmed By:NICHOLAS VALDIVIA MD
[2017-02-25] MEDS ORDERED: DEXTROSE 5%-WATER - 50 ML IVPB ONE (09:44)
[2017-02-25] MEDS ORDERED: cefTRIAXone SODIUM 1 GM VIAL ONE (09:44)
[2017-02-25] MEDS: BISACODYL 5 MG TABLET.DR (FP) PO SCH (09:56)
[2017-02-25] MEDS: MEMANTINE HCL 10 MG TABLET (FP) PO SCH (09:56)
[2017-02-25] MEDS: CEFTRIAXONE 1 GM in DEXTROSE 5%-WATER - 50 ML IVPB SCH (09:56)
[2017-02-25] MEDS: ASPIRIN 81 MG CHEWABLE TABLETS PO SCH (09:56)
[2017-02-25] MEDS: LISINOPRIL 20 MG TABLET (FP) PO SCH (09:56)
--- NOTE | 2017-02-25 10:57 | HP ---
Admitting History and Physical - Primary Care Physician PCP: Chuck Hercules - Admission Chief Complaint: ams History of Present Illness: ER HISTORY - History of Present Illness Initial Comments: 76yo F with PMH of dementia, UTI, osteoporosis presents c/o ams, fever, cough. Pt's son at bedside provided history, as pt has dementia. Pt has had AMS for 3- 4 days. Yesterday symptoms of non-productive cough, sneezing and fever worsened. Pt's family tried to get an antibiotic for pt a week ago, and were finally able to fill a prescription for Ceftin yesterday. Pt was last admitted to hospital in August 2016 for UTI/sepsis and pt's symptoms are similar today as compared to that admission per pt's son. Pt's family speaks Georgian, automotive design layout drafter was used. Pt examined by me in the floors Baseline dementia, total care, needs assistance for ambulation- also dementia- pt known from previous admission for UTI She is sleepy but opens eyes to name no distress ate food with assistance History Source: Medical Record Limitations to Obtaining History: Dementia - Past Medical History [employer]: Yes: Dementia Cardiovascular: Yes: HTN Musculoskeletal: Yes: Other (osteoporosis) - Smoking History Smoking history: Never smoked Have you smoked in the past 12 months: No If you are a former smoker, when did you quit?: 1 year ago - Alcohol/Substance Use Hx Alcohol Use: No Home Medications - Allergies Allergies/Adverse Reactions: Allergies Allergy/AdvReac Type Severity Reaction Status Date / Time No Known Allergies Allergy Verified 02/24/17 10:49 - Home Medications Home Medications: Ambulatory Orders Alendronate Na [Fosamax (Weekly)] 70 mg PO Q7D 09/01/16 Ascorbic Acid [Vitamin C -] 500 mg PO DAILY 09/01/16 Aspirin [ASA -] 81 mg PO DAILY 09/01/16 Bisacodyl [Dulcolax] 10 mg PO DAILY 09/01/16 Lisinopril [Zestril] 40 mg PO DAILY 09/01/16 Memantine HCl [Namenda -] 10 mg PO DAILY 09/01/16 Multivitamin [Poly-Vitamin] 1 each PO DAILY 09/01/16 Cefuroxime Axetil [Ceftin -] 250 mg PO BID #8 tablet 09/07/16 Review of Systems - Review of Systems Constitutional: reports: Fever, Weakness. denies: Chills Physical Examination Vital Signs: Vital Signs Temperature 98.4 F 02/25/17 06:17 Pulse Rate 89 02/25/17 06:17 Respiratory Rate 20 02/25/17 06:17 Blood Pressure 126/58 02/25/17 06:17 O2 Sat by Pulse Oximetry (%) 95 02/25/17 05:34 Constitutional: Yes: No Distress, Calm Cardiovascular: Yes: Regular Rate and Rhythm Respiratory: Yes: CTA Bilaterally Gastrointestinal: Yes: Normal Bowel Sounds, Soft. No: Distention, Hemorrhoids, Tenderness Edema: No Psychiatric: Yes: Alert Labs: Laboratory Results - last 24 hr 02/24/17 02/25/17 02/25/17 11:00 10:45 10:45 WBC 7.5 D RBC 3.98 Hgb 11.5 Hct 34.7 MCV 87.1 MCH 28.9 MCHC 33.2 RDW 17.1 H Plt Count 207 D MPV 9.1 Neutrophils % 61.0 Lymphocytes % 19.2 D Monocytes % 16.8 H Eosinophils % 2.2 D Basophils % 0.8 Sodium 141 Potassium 4.0 Chloride 105 Carbon Dioxide 27 Anion Gap 9 BUN 10 D Creatinine 1.0 Creat Clearance w eGFR 54.05 Random Glucose 148 H Calcium 8.7 Total Bilirubin 0.3 D AST 16 ALT 23 Alkaline Phosphatase 87 Total Protein 7.0 Albumin 3.2 L Urine Color Yellow Urine Appearance Cloudy Urine pH 5.0 Ur Specific [place] 1.020 Urine Protein Negative Urine Glucose (UA) Negative Urine Ketones Negative Urine Blood 2+ H Urine Nitrite Positive Urine Bilirubin Negative Urine Urobilinogen Negative Ur Leukocyte Esterase 3+ H D Urine RBC 38 Urine WBC 477 Ur Epithelial Cells Rare Urine Mucus Rare Imaging - Results Chest X-ray: Image Reviewed (no infiltrates) EKG: Image Reviewed (sinus tachycardia) Problem List - Problems (1) Sepsis Code(s): A41.9 - SEPSIS, UNSPECIFIED ORGANISM (2) Urinary tract infection Code(s): N39.0 - URINARY TRACT INFECTION, SITE NOT SPECIFIED Qualifiers: (3) Dementia Code(s): F03.90 - UNSPECIFIED DEMENTIA WITHOUT BEHAVIORAL DISTURBANCE Assessment/Plan PLAN IV fluids IV antibiotics assist with feeding continue with meds DVT prophylaxis-- Lovenox
[2017-02-25 11:11] LABS: BASOPHIL 0.8 % (0-2.0); EOSINOPHIL 2.2 % (0-4.5); MCH 28.9 pg (25.7-33.7); MCHC 33.2 g/dl (32.0-36.0); MEAN CELL VOLUME 87.1 fl (80-96); MEAN PLT VOLUME 9.1 fl (7.5-11.1); PLATELET COUNT 207 K/MM3 (134-434); RDW 17.1 % (11.6-15.6); WHITE BLOOD COUNT 7.5 K/mm3 (4.0-10.0)
[2017-02-25] MEDS ORDERED: DEXTROSE 5%-0.45% SALINE 1,000 ML IV SCH (11:30)
[2017-02-25 11:42] LABS: ALBUMIN 3.2 g/dl (3.4-5.0); ALK PHOS 87 U/L (45-117); ANION GAP 9 (8-16); BILIRUBIN,TOTAL 0.3 mg/dL (0.2-1.0); CALCIUM 8.7 mg/dL (8.5-10.1); CO2 27 mmol/L (21-32); GLUCOSE,RANDOM 148 mg/dL (74-106); SGOT/AST 16 U/L (15-37); SGPT/ALT 23 U/L (12-78)
--- NOTE | 2017-02-26 09:43 | PN ---
Progress Note, Physician Chief Complaint: more alert and awake today ate food - Current Medication List Current Medications: Active Medications Aspirin (Asa -) 81 mg PO DAILY [facility] Last Admin: 02/25/17 09:56 Dose: 81 mg Bisacodyl (Dulcolax -) 10 mg PO DAILY [facility] Last Admin: 02/25/17 09:56 Dose: 10 mg Enoxaparin Sodium (Lovenox -) 40 mg SQ DAILY [facility] Ceftriaxone Sodium 1 gm/ (Dextrose) 50 mls @ 100 mls/hr IVPB DAILY [facility] Last Admin: 02/25/17 09:56 Dose: 100 mls/hr Dextrose/Sodium Chloride (D5-1/2ns -) 1,000 mls @ 50 mls/hr IV ASDIR [facility] Lisinopril (Prinivil) 40 mg PO DAILY [facility] Last Admin: 02/25/17 09:56 Dose: 40 mg Memantine (Namenda -) 10 mg PO DAILY [facility] Last Admin: 02/25/17 09:56 Dose: 10 mg - Objective Vital Signs: Vital Signs Temperature 97.8 F 02/26/17 05:30 Pulse Rate 67 02/26/17 05:30 Respiratory Rate 18 02/26/17 05:30 Blood Pressure 137/64 02/26/17 05:30 O2 Sat by Pulse Oximetry (%) 98 02/25/17 22:34 Constitutional: Yes: No Distress, Calm Cardiovascular: Yes: Regular Rate and Rhythm Respiratory: Yes: CTA Bilaterally, Wheezes Gastrointestinal: Yes: Normal Bowel Sounds. No: Distention, Tenderness Edema: No Labs: CBC, BMP 02/25/17 10:45 02/25/17 10:45 INR, PTT INR 1.18 (0.82-1.09) H 02/24/17 11:00 Problem List - Problems (1) Sepsis Code(s): A41.9 - SEPSIS, UNSPECIFIED ORGANISM (2) Urinary tract infection Code(s): N39.0 - URINARY TRACT INFECTION, SITE NOT SPECIFIED Qualifiers: (3) Dementia Code(s): F03.90 - UNSPECIFIED DEMENTIA WITHOUT BEHAVIORAL DISTURBANCE Assessment/Plan PLAN IV fluids-- dc as she is eating better IV antibiotics assist with feeding PT eval continue with meds DVT prophylaxis-- Lovenox pt improving clinically dc plan for AM if afebrile
[2017-02-26] MEDS ORDERED: PT OWN MED DRAWER 7, Y5N ONE (10:48)
[2017-02-26] MEDS ORDERED: cefTRIAXone SODIUM 1 GM VIAL ONE (10:49)
[2017-02-26] MEDS ORDERED: DEXTROSE 5%-WATER - 50 ML IVPB ONE (10:49)
[2017-02-26] MEDS: DEXTROSE 5%-0.45% SALINE 1,000 ML IV SCH ×2 (10:56→14:01)
[2017-02-26] MEDS: LISINOPRIL 20 MG TABLET (FP) PO SCH (10:57)
[2017-02-26] MEDS: CEFTRIAXONE 1 GM in DEXTROSE 5%-WATER - 50 ML IVPB SCH (10:57)
[2017-02-26] MEDS: BISACODYL 5 MG TABLET.DR (FP) PO SCH (10:57)
[2017-02-26] MEDS: ENOXAPARIN NA (PORCINE) 40 MG/0.4 ML DISP.SYRIN SQ SCH (10:58)
[2017-02-26] MEDS: ASPIRIN 81 MG CHEWABLE TABLETS PO SCH (10:58)
[2017-02-26] MEDS: MEMANTINE HCL 10 MG TABLET (FP) PO SCH (10:58)
[2017-02-27] MEDS ORDERED: cefTRIAXone SODIUM 1 GM VIAL ONE (09:20)
[2017-02-27] MEDS ORDERED: DEXTROSE 5%-WATER - 50 ML IVPB ONE (09:21)
[2017-02-27] MEDS: ASPIRIN 81 MG CHEWABLE TABLETS PO SCH (09:25)
[2017-02-27] MEDS: BISACODYL 5 MG TABLET.DR (FP) PO SCH (09:25)
[2017-02-27] MEDS: MEMANTINE HCL 10 MG TABLET (FP) PO SCH (09:25)
[2017-02-27] MEDS: ENOXAPARIN NA (PORCINE) 40 MG/0.4 ML DISP.SYRIN SQ SCH (09:25)
[2017-02-27] MEDS: LISINOPRIL 20 MG TABLET (FP) PO SCH (09:25)
[2017-02-27] MEDS: DEXTROSE 5%-0.45% SALINE 1,000 ML IV SCH (09:26)
[2017-02-27] MEDS: CEFTRIAXONE 1 GM in DEXTROSE 5%-WATER - 50 ML IVPB SCH (09:26)
--- NOTE | 2017-02-27 11:16 | DS ---
Physical Examination Vital Signs: Vital Signs Temperature 98.1 F 02/27/17 05:50 Pulse Rate 67 02/27/17 05:50 Respiratory Rate 20 02/27/17 01:08 Blood Pressure 130/65 02/27/17 05:50 O2 Sat by Pulse Oximetry (%) 96 02/26/17 21:00 Findings/Remarks: Awake and comfortable eating well No complaints Poor historian Chart reviewed Constitutional: Yes: No Distress, Calm Eyes: Yes: Conjunctiva Clear Neck: Yes: Supple Cardiovascular: Yes: Regular Rate and Rhythm Respiratory: Yes: CTA Bilaterally Gastrointestinal: Yes: Normal Bowel Sounds, Soft, Other (Bladder not distended) Edema: No Labs: CBC, BMP 02/25/17 10:45 02/25/17 10:45 Discharge Summary Reason For Visit: UTI,DEMENTIA,SEPSIS Current Active Problems Sepsis (Acute) Urinary tract infection (Acute) Hospital Course: 76yo F with PMH of dementia, UTI, osteoporosis presented to er with c/o ams, fever, cough workup revealed she has urinary tract infection Treated with IV Rocephin Got much better Urine culture showed Escherichia coli Patient recently filled a prescription of Ceftin Patient now stable for discharge Discussed with shoe caser--- patient to go home--- and patient already have home health aide for 10 hours. shoe caser working on discharge planning Medically stable for discharge Meds reconciled for discharge Patient to follow with her PMD next week Anticipated discharge today Condition: Improved - Instructions Referrals: Chuck Hercules MD [Primary Care Provider] - Disposition: HOME - Home Medications Comprehensive Discharge Medication List: Ambulatory Orders Alendronate Na [Fosamax (Weekly)] 70 mg PO Q7D 09/01/16 Ascorbic Acid [Vitamin C -] 500 mg PO DAILY 09/01/16 Aspirin [ASA -] 81 mg PO DAILY 09/01/16 Bisacodyl [Dulcolax] 10 mg PO DAILY 09/01/16 Lisinopril [Zestril] 40 mg PO DAILY 09/01/16 Memantine HCl [Namenda -] 10 mg PO DAILY 09/01/16 Multivitamin [Poly-Vitamin] 1 each PO DAILY 09/01/16 Cefuroxime Axetil Suspension [Ceftin Suspension -] 250 mg PO BID #50 ml
[2017-02-28] MEDS: DEXTROSE 5%-0.45% SALINE 1,000 ML IV SCH (05:40)
[2017-02-28 05:59] VITALS: PULSE 72
[2017-02-28] MEDS ORDERED: DEXTROSE 5%-WATER - 50 ML IVPB ONE (09:45)
[2017-02-28] MEDS ORDERED: cefTRIAXone SODIUM 1 GM VIAL ONE (09:45)
[2017-02-28] MEDS: CEFTRIAXONE 1 GM in DEXTROSE 5%-WATER - 50 ML IVPB SCH (09:47)
[2017-02-28] MEDS: MEMANTINE HCL 10 MG TABLET (FP) PO SCH (09:47)
[2017-02-28] MEDS: LISINOPRIL 20 MG TABLET (FP) PO SCH (09:47)
[2017-02-28] MEDS: BISACODYL 5 MG TABLET.DR (FP) PO SCH (09:47)
[2017-02-28] MEDS: ASPIRIN 81 MG CHEWABLE TABLETS PO SCH (09:47)
[2017-02-28] MEDS: ENOXAPARIN NA (PORCINE) 40 MG/0.4 ML DISP.SYRIN SQ SCH (09:48)
[2017-02-28 10:00] VITALS: BP 120/69; TEMP 98
--- NOTE | 2017-02-28 11:22 | PN ---
Progress Note (short form) - Note Progress Note: pt will be dc today no distress Vital Signs - 24 hr 02/27/17 02/27/17 02/27/17 14:05 18:53 20:31 Temperature 98.4 F 98.9 F Pulse Rate 83 96 H Respiratory 20 18 18 Rate Blood Pressure 117/59 146/79 O2 Sat by Pulse 96 Oximetry (%) 02/28/17 02/28/17 05:58 09:00 Temperature 97.5 F L 98.0 F Pulse Rate 72 72 Respiratory 18 18 Rate Blood Pressure 140/69 120/69 O2 Sat by Pulse 97 Oximetry (%) S1 S2 RRR Lungs clear Abd- soft, NT No edema A/P UTI dementia -- dc home on PO antibiotics-- sent to pharmacy -- continue with meds Problem List - Problems (1) Sepsis Code(s): A41.9 - SEPSIS, UNSPECIFIED ORGANISM (2) Urinary tract infection Code(s): N39.0 - URINARY TRACT INFECTION, SITE NOT SPECIFIED Qualifiers: (3) Dementia Code(s): F03.90 - UNSPECIFIED DEMENTIA WITHOUT BEHAVIORAL DISTURBANCE
== END 2017-02-28 12:56 | disposition home or self-care (01) | DRG 871 ==
LOC: JER 09:55 → JERBED 13:37 → J7W 16:35
PROVIDERS: ADMIT Internal Medicine; ATTEND Internal Medicine
DX: A41.9 Sepsis, unspecified organism (principal); G93.41 Metabolic encephalopathy; N39.0 Urinary tract infection, site not specified; B96.20 Unspecified Escherichia coli [E. coli] as the cause of diseases classified elsewhere; F03.90 Unspecified dementia, unspecified severity, without behavioral disturbance, psychotic disturbance, mood disturbance, and anxiety; M81.0 Age-related osteoporosis without current pathological fracture
CPT/HCPCS: 36415; 71010-TC; 80053; 81003; 81015; 82803; 83605; 85025; 85610; 85730; 87040; 87086; 87186; 93005; 93010; 97161-GP; 99285-25

== ENCOUNTER 2017-03-21 10:19 | Emergency (ER) | payer OTHER ==
--- NOTE | 2017-03-21 10:30 | PDOC ---
History of Present Illness - General Chief Complaint: Diarrhea Stated Complaint: Diarrhea Time Seen by Provider: 03/21/17 10:29 - History of Present Illness Initial Comments: 03/21/17 10:36 Ms. Anna is a 76 yo female with a significant past medical history of osteoarthritis, 2 stents and Alzheimer's dementia who presents to the emergency department with a 2 day history of diarrhea since Monday. Per family the stool was dark and coffee-like appearing. Per family she was also clutching her stomach somewhat. The patient denies chest pain, shortness of breath, headache and dizziness. Denies fever, chills, nausea, vomit, and constipation. Denies dysuria, frequency , urgency and hematuria. Allergies: NKDA Past History - Past Medical History Allergies/Adverse Reactions: Allergies Allergy/AdvReac Type Severity Reaction Status Date / Time No Known Allergies Allergy Verified 02/24/17 10:49 Home Medications: Ambulatory Orders Alendronate Na [Fosamax (Weekly)] 70 mg PO Q7D 09/01/16 Ascorbic Acid [Vitamin C -] 500 mg PO DAILY 09/01/16 Aspirin [ASA -] 81 mg PO DAILY 09/01/16 Bisacodyl [Dulcolax] 10 mg PO DAILY 09/01/16 Lisinopril [Zestril] 40 mg PO DAILY 09/01/16 Memantine HCl [Namenda -] 10 mg PO DAILY 09/01/16 Multivitamin [Poly-Vitamin] 1 each PO DAILY 09/01/16 Carbidopa/Levodopa 10/ [Sinemet 10/100 -] 1 each PO DAILY 03/21/17 Escitalopram Oxalate [Lexapro -] 5 mg PO DAILY 03/21/17 Memantine HCl 10 mg PO DAILY 03/21/17 Risperidone 0.25 mg PO DAILY 03/21/17 Anemia: Yes Asthma: No Cancer: No Cardiac Disorders: Yes (cardiac stents) COPD: No CHF: No Dementia: Yes Diabetes: No GI Disorders: Yes (colon polyps, diverticulosis) Disorders: Yes (uti) HTN: Yes Hypercholesterolemia: Yes Liver Disease: No Seizures: No Thyroid Disease: No - Surgical History Abdominal Surgery: No Appendectomy: No Cardiac Surgery: Yes (stent) Cholecystectomy: Yes (lap ifeanyi) Neurologic Surgery: No Orthopedic Surgery: No - Suicide/Smoking/Psychosocial Hx Smoking History: Never smoked Have you smoked in the past 12 months: No If you are a former smoker, when did you quit?: 1 year ago 'Breaking Loose' booklet given: 10/15/12 Hx Alcohol Use: No Drug/Substance Use Hx: No Substance Use Type: None Hx Substance Use Treatment: No Review of Systems - Review of Systems Comments:: 03/21/17 10:36 GENERAL/CONSTITUTIONAL: No fever or chills. No weakness. HEAD, EYES, EARS, NOSE AND THROAT: No change in vision. No ear pain or discharge. No sore throat. CARDIOVASCULAR: No chest pain or shortness of breath RESPIRATORY: No cough, wheezing, or hemoptysis. GASTROINTESTINAL: +Diarrhea for 2 days with stomach pain. No nausea, vomiting, or constipation. GENITOURINARY: No dysuria, frequency, or change in urination. MUSCULOSKELETAL: No joint or muscle swelling or pain. No neck or back pain. SKIN: No rash NEUROLOGIC: No headache, vertigo, loss of consciousness, or change in strength/ sensation. ENDOCRINE: No increased thirst. No abnormal weight change HEMATOLOGIC/LYMPHATIC: No anemia, easy bleeding, or history of blood clots. ALLERGIC/IMMUNOLOGIC: No hives or skin allergy. *Physical Exam - Physical Exam Comments: 03/21/17 10:36 GENERAL: Awake, alert, and fully oriented, in no acute distress HEAD: No signs of trauma, normocephalic, atraumatic EYES: PERRLA, EOMI, sclera anicteric, conjunctiva clear ENT: Auricles normal inspection, hearing grossly normal, nares patent, oropharynx clear without exudates. Moist mucosa NECK: Normal ROM, supple, no lymphadenopathy, JVD, or masses LUNGS: No distress, speaks full sentences, clear to auscultation bilaterally HEART: Regular rate and rhythm, normal S1 and S2, no murmurs, rubs or gallops, peripheral pulses normal and equal bilaterally. ABDOMEN: +Pain to palpation in all 4 quadrants. Soft, normoactive bowel sounds. No guarding, no rebound. No masses EXTREMITIES: Normal inspection, Normal range of motion, no edema. No clubbing or cyanosis. NEUROLOGICAL: Cranial nerves II through XII grossly intact. Normal speech, normal gait, no focal sensorimotor deficits SKIN: Warm, Dry, normal turgor, no rashes or lesions noted. ED Treatment Course - LABORATORY CBC & Chemistry Diagram: 03/21/17 12:00 03/21/17 12:00 Medical Decision Making - Medical Decision Making 03/21/17 15:28 Labs as below. Patient has isolated diarrhea only; CT negative for other acute pathology. Will send home and instruct to follow-up outpatient with PCP. *DC/Admit/Observation/Transfer Diagnosis at time of Disposition: Diarrhea Qualifiers: Diarrhea type: unspecified type Qualified Code(s): R19.7 - Diarrhea, unspecified - Discharge Dispostion Disposition: HOME - Referrals Referrals: Chuck Hercules MD [Primary Care Provider] - - Patient Instructions Printed Discharge Instructions: DI for Diarrhea and Traveler's Diarrhea -- Adult Print Language: LITHUANIAN
[2017-03-21 10:46] VITALS: BMI 21.6
--- NOTE | 2017-03-21 11:25 | PDOC ---
Attending Attestation - Resident Resident Name: RaimundonewhariniHermiloDavid - ED Attending Attestation I have performed the following: I have examined & evaluated the patient, The case was reviewed & discussed with the resident, I agree w/resident's findings & plan, Exceptions are as noted - HPI HPI: 03/21/17 11:26 76y F hx of demenia, hl, cad s/p 2 setents, colonic polyps, diverticulosis, presents with diarrhea. hstory provided from family due to the pts advanced demntia. family notes the pt has had multiple dark colored stools since monday. on monday the pt appeared to be crying, unclera if she was having pain. no associated fever/chills, vomiting. - Physicial Exam PE: 03/21/17 13:07 GENERAL: The patient is awake, Nontoxic - in no acute distress. HEAD: Normocephalic, atraumatic. ENT: Normal voice, Moist mucous membranes. NECK: Normal range of motion, supple LUNGS: Breath sounds equal, clear to auscultation bilaterally. No wheezes, no rhonchi, no rales. HEART: Regular rate and rhythm, normal S1 and S2 without murmur, rub or gallop. ABDOMEN: Soft, nontender, No guarding, no rebound. EXTREMITIES: Normal range of motion, no edema. NEUROLOGICAL: No facial assymetry, limited exam SKIN: Warm, Dry, normal turgor, - Medical Decision Making 03/21/17 13:08 suspect possible viral syndrom vs. colitis due to limited history and history of pt crying, lower threshold for imaging pts labs reveiwed noted for leukocytsis guaiac negative for blood will obtain CT 03/21/17 16:08 ct neg will dc the pt with pmd fu pts abd reassessed and is soft nontender return precautions were discussed pmd fu
[2017-03-21 12:15] LABS: MCH 28.8 pg (25.7-33.7); MCHC 32.1 g/dl (32.0-36.0); MEAN CELL VOLUME 89.6 fl (80-96); MEAN PLT VOLUME 9.3 fl (7.5-11.1); PLATELET COUNT 268 K/MM3 (134-434); RDW 16.5 % (11.6-15.6); WHITE BLOOD COUNT 14.3 K/mm3 (4.0-10.0)
[2017-03-21 12:30] LABS: ALBUMIN 3.8 g/dl (3.4-5.0); ALK PHOS 102 U/L (45-117); ANION GAP 8 (8-16); BILIRUBIN,TOTAL 0.6 mg/dL (0.2-1.0); CALCIUM 9.6 mg/dL (8.5-10.1); CO2 27 mmol/L (21-32); CREATININE 1.2 mg/dL (0.55-1.02); GLUCOSE,RANDOM 114 mg/dL (74-106); SGOT/AST 17 U/L (15-37); SGPT/ALT 23 U/L (12-78); TOT PROT 8.5 g/dl (6.4-8.2)
[2017-03-21] MEDS ORDERED: SODIUM CHLORIDE 500 ML IV STA (13:11)
[2017-03-21 14:02] LABS: URINE APPEARANCE CLEAR; URINE BILIRUBIN NEGATIVE (NEGATIVE); URINE BLOOD 1+ (NEGATIVE); URINE COLOR YELLOW; URINE GLUCOSE (UA) NEGATIVE (NEGATIVE); URINE KETONE NEGATIVE (NEGATIVE); URINE LEUK ESTERASE NEGATIVE (NEGATIVE); URINE NITRITE NEGATIVE (NEGATIVE); URINE PROTEIN NEGATIVE (NEGATIVE); URINE UROBILINOGEN NEGATIVE mg/dL (0.2-1.0)
[2017-03-21 14:11] LABS: URINE RBC 2 /hpf (0-3); URINE WBC 1 /hpf (3-5)
[2017-03-21 18:14] VITALS: BP 153/78; PULSE 88; TEMP 98.2
== END 2017-03-21 18:17 | disposition home or self-care (01) ==
LOC: JER 10:19
DX: R19.7 Diarrhea, unspecified (principal); I25.10 Atherosclerotic heart disease of native coronary artery without angina pectoris; I10 Essential (primary) hypertension; Z95.5 Presence of coronary angioplasty implant and graft; E78.00 Pure hypercholesterolemia, unspecified; M19.90 Unspecified osteoarthritis, unspecified site; G30.8 Other Alzheimer's disease; F02.80 Dementia in other diseases classified elsewhere, unspecified severity, without behavioral disturbance, psychotic disturbance, mood disturbance, and anxiety
CPT/HCPCS: 36415; 74177-TC; 80053; 81003; 81015; 82272; 85027; 99282-25

== ENCOUNTER 2017-04-05 10:40 | Inpatient (IN) | payer OTHER ==
--- NOTE | 2017-04-05 10:58 | PDOC ---
History of Present Illness - General History Source: Care Provider, Significant Other Exam Limitations: Dementia, Language Barrier - History of Present Illness Initial Comments: 04/05/17 12:23 76 year old female, with PMH of Alzheimers dementia, HTN, HLD, s/p 2 cardiac stents, osteoarthritis, who presents to the emergency room BIBA complaining of 1 day of LLE swelling. The patients and group home manager state that they noticed the swelling this morning. They also noticed a bump on the medial aspect of the left thigh. The patient is not ambulatory and uses a wheelchair. She had no witnessed falls. HPI is limited secondary to dementia. Allergies: NKDA PCP: Dr. Chuck Hercules <Sneha Presley - Last Filed: 04/05/17 13:03> - History of Present Illness Aspirin Received prior to arrival: Yes: 81 mg x 1 <Speedy Grider - Last Filed: 04/05/17 13:04> <Cathie Mars - Last Filed: 04/05/17 17:36> - General Chief Complaint: Pain Stated Complaint: LEG PAIN Time Seen by Provider: 04/05/17 10:50 Past History <Sneha Presley - Last Filed: 04/05/17 13:03> - Past Medical History Anemia: Yes Asthma: No Cancer: No Cardiac Disorders: Yes (cardiac stents) COPD: No CHF: No Dementia: Yes Diabetes: No GI Disorders: Yes (colon polyps, diverticulosis) Disorders: Yes (uti) HTN: Yes Hypercholesterolemia: Yes Liver Disease: No Seizures: No Thyroid Disease: No - Surgical History Abdominal Surgery: No Appendectomy: No Cardiac Surgery: Yes (stent) Cholecystectomy: Yes (lap ifeanyi) Neurologic Surgery: No Orthopedic Surgery: No - Suicide/Smoking/Psychosocial Hx Smoking History: Never smoked Have you smoked in the past 12 months: No If you are a former smoker, when did you quit?: 1 year ago Information on smoking cessation initiated: No 'Breaking Loose' booklet given: 10/15/12 Hx Alcohol Use: No Drug/Substance Use Hx: No Substance Use Type: None Hx Substance Use Treatment: No <Speedy Grider - Last Filed: 04/05/17 13:04> <Cathie Mars - Last Filed: 04/05/17 17:36> - Past Medical History Allergies/Adverse Reactions: Allergies Allergy/AdvReac Type Severity Reaction Status Date / Time No Known Allergies Allergy Verified 02/24/17 10:49 Home Medications: Ambulatory Orders Lisinopril [Zestril] 40 mg PO DAILY 09/01/16 Memantine HCl [Namenda -] 10 mg PO DAILY 09/01/16 Multivitamin [Poly-Vitamin] 1 each PO DAILY 09/01/16 Carbidopa/Levodopa [Sinemet -] 1 each PO DAILY 03/21/17 Escitalopram Oxalate [Lexapro -] 5 mg PO DAILY 03/21/17 Acetaminophen [Tylenol] 325 mg PO TID PRN 04/05/17 Review of Systems - Review of Systems Able to Perform ROS?: No (dementia ) Is the patient limited Burkinan proficient: Yes <Sneha Prelsey - Last Filed: 04/05/17 13:03> *Physical Exam - Vital Signs Last Vital Signs Temp Pulse Resp BP Pulse Ox 98.7 F 75 22 149/73 96 04/05/17 10:51 04/05/17 10:51 04/05/17 10:51 04/05/17 10:51 04/05/17 10:51 - Physical Exam Comments: 04/05/17 12:24 GENERAL: Awake, alert, in no acute distress HEAD: No signs of trauma EYES: PERRLA, EOMI, sclera anicteric, conjunctiva clear ENT: Auricles normal inspection, hearing grossly normal, nares patent, oropharynx clear without exudates. Moist mucosa NECK: Normal ROM, supple, no lymphadenopathy, JVD, or masses LUNGS: Breath sounds equal, clear to auscultation bilaterally. No wheezes, and no crackles HEART: Regular rate and rhythm, normal S1 and S2, no murmurs, rubs or gallops ABDOMEN: Soft, nontender, normoactive bowel sounds. No guarding, no rebound. No masses EXTREMITIES: LLE with nonpitting edema from the ankle to the midthigh with non palpable cord like vessel on the medial aspect of the mid thigh. 2+ peripheral pulses in all 4 extremities. FROM in all extremities. No deformities, no leg length discrepencies. BACK: No midline spinal tenderness in cervical/thoracic/lumbar region NEUROLOGICAL: Normal speech, cranial nerves intact, negative pronator drift, 5/ 5 strength in all 4 extremities, normal sensation to light touch in all 4 extremities, normal cerebellar exam, normal reflexes and tone SKIN: Warm, Dry, normal turgor, no rashes or lesions noted. <Sneha Presley - Last Filed: 04/05/17 13:03> - Vital Signs Last Vital Signs Temp Pulse Resp BP Pulse Ox 98.7 F 75 22 149/73 96 04/05/17 10:51 04/05/17 10:51 04/05/17 10:51 04/05/17 10:51 04/05/17 10:51 <Speedy Grider - Last Filed: 04/05/17 13:04> - Vital Signs Last Vital Signs Temp Pulse Resp BP Pulse Ox 98.7 F 91 H 18 134/69 95 04/05/17 10:51 04/05/17 14:23 04/05/17 14:23 04/05/17 14:23 04/05/17 14:23 <Cathie Mars - Last Filed: 04/05/17 17:36> Heart Score/ECG Review #1 04/05/17 12:00 Twelve-lead EKG was performed and reviewed by me. Sinus tachycardia rate 101. Normal axis and intervals. No ST elevations or T-wave inversions. <Speedy Grider - Last Filed: 04/05/17 13:04> ED Treatment Course - LABORATORY CBC & Chemistry Diagram: 04/05/17 11:30 04/05/17 11:30 - ADDITIONAL ORDERS Additional order review: Laboratory Results 04/05/17 11:30 PT with INR 14.20 H INR 1.26 H PTT (Actin FS) 25.4 L 04/05/17 11:30 RBC 4.04 MCV 88.3 MCHC 31.8 L RDW 15.9 H MPV 8.8 Neutrophils % 86.3 H D Lymphocytes % 5.8 L D Monocytes % 7.3 Eosinophils % 0.1 D Basophils % 0.5 - RADIOLOGY Radiograph Interpretation: 04/05/17 12:57 EXAM: Left lower extremity venous duplex. INDICATION: Left lower extremity swelling. TECHNIQUE: Real-time grayscale, color Doppler and spectral Doppler sonogram of the deep veins in the left lower extremity was performed by the technologist utilizing compression maneuvers. The common femoral vein, portions of the greater saphenous vein, the profunda femoral, femoral, popliteal and posterior tibial veins were interrogated in the left lower extremity. Images are submitted for review. COMPARISON: None. FINDINGS: There is thrombosis of the left common femoral, profunda femoral, femoral, popliteal and posterior tibial veins with echogenic intraluminal thrombus. These vessels demonstrate no evidence of flow related color Doppler signal IMPRESSION: Occlusive deep vein thrombosis from the left common femoral vein through the posterior tibial veins. The technologist notified the Emergency Department of these findings, prior to this final report. Reported By: Gaby Liu MD 04/05/17 1253 <Sneha Presley - Last Filed: 04/05/17 13:03> - LABORATORY CBC & Chemistry Diagram: 04/05/17 11:30 04/05/17 11:30 <Speedy Grider - Last Filed: 04/05/17 13:04> - LABORATORY CBC & Chemistry Diagram: 04/05/17 11:30 04/05/17 11:30 - ADDITIONAL ORDERS Additional order review: Laboratory Results 04/05/17 04/05/17 11:30 11:30 PT with INR 14.20 H INR 1.26 H PTT (Actin FS) 25.4 L Sodium 135 L Potassium 5.1 Chloride 102 Carbon Dioxide 21 D Anion Gap 12 BUN 21 H D Creatinine 1.2 H Creat Clearance w eGFR 43.80 Random Glucose 221 H D Calcium 9.1 Total Bilirubin 0.5 AST 33 D ALT 22 Alkaline Phosphatase 106 Total Protein 8.1 Albumin 3.3 L 04/05/17 11:30 RBC 4.04 MCV 88.3 MCHC 31.8 L RDW 15.9 H MPV 8.8 Neutrophils % 86.3 H D Lymphocytes % 5.8 L D Monocytes % 7.3 Eosinophils % 0.1 D Basophils % 0.5 - Medications Given in the ED: ED Medications Discontinued Medications Generic Name Dose Route Start Last Admin Trade Name Freq PRN Reason Stop Dose Admin Acetaminophen 1,000 mg 04/05/17 11:01 04/05/17 13:01 Ofirmev Injection - IVPB 04/05/17 11:02 Not Given ONCE ONE <Cathie Mars - Last Filed: 04/05/17 17:36> Medical Decision Making - Medical Decision Making 04/05/17 13:[address] Chandni Khan's overhead at 12:42pm Paged Dr. Khan's via office phone at 1:00pm. Called back at 1:02pm. <Sneha Presley - Last Filed: 04/05/17 13:03> - Medical Decision Making 04/05/17 11:04 76-year-old female presents with 1 day of left lower extremity edema. Vitals are unremarkable. Exam with swelling of the left lower extremity and a cordlike vessel palpated at the mid thigh. Exam is concerning for venous thrombosis. Given the patient's dementia will also obtain x-ray to rule out bony injury. -labs -US -pain control -EKG -LLE XR -raessess 04/05/17 13:05 US w large DVT. Pt tachycardic to 102. Given limitations in obtaining history from patient, will obtain a CTA chest to eval for PE given the extent of the DVT and tachycardia. I spoke with Dr. hCandni Singh who will admit the patient. I will also order a heparin drip. Case discussed in detail with admitting physician including history, physical exam and ancillary studies. Admitting physician has assumed care for the patient, will follow all pending diagnostics and will complete the evaluation and treatment. <Speedy Grider - Last Filed: 04/05/17 13:04> - Medical Decision Making 04/05/17 17:36 Dr. Chandni Navarrete was paged requesting a callback at this time. <Cathie Mars - Last Filed: 04/05/17 17:36> *DC/Admit/Observation/Transfer - Attestations Scribe Attestion: 04/05/17 12:24 Documentation prepared by TAYLOR Perez, acting as medical driver for Speedy Grider MD. <Sneha Presley - Last Filed: 04/05/17 13:03> - Discharge Dispostion Admit: Yes - Attestations Physician Attestion: 04/05/17 13:13 I, Dr. Speedy Grider MD, attest that this document has been prepared under my direction and personally reviewed by me in its entirety. I further attest, that it accurately reflects all work, treatment, procedures and medical decision -making performed by me. <Speedy Grider - Last Filed: 04/05/17 13:04> <Cathie Mars - Last Filed: 04/05/17 17:36> Diagnosis at time of Disposition: DVT (deep venous thrombosis) - Discharge Dispostion Condition at time of disposition: Stable
[2017-04-05] MEDS ORDERED: ACETAMINOPHEN 1000 MG/100 ML VIAL (NON FORMULARY) IVPB ONE (11:01)
[2017-04-05 11:04] VITALS: BMI 21.2
[2017-04-05 11:44] LABS: BASOPHIL 0.5 % (0-2.0); EOSINOPHIL 0.1 % (0-4.5); MCH 28.1 pg (25.7-33.7); MCHC 31.8 g/dl (32.0-36.0); MEAN CELL VOLUME 88.3 fl (80-96); MEAN PLT VOLUME 8.8 fl (7.5-11.1); NEUTROPHILS 86.3 % (42.8-82.8); PLATELET COUNT 308 K/MM3 (134-434); RDW 15.9 % (11.6-15.6); WHITE BLOOD COUNT 17.2 K/mm3 (4.0-10.0)
[2017-04-05 12:02] LABS: INR 1.26 (0.82-1.09); PROTHROMBIN TIME (PATIENT) 14.2 SEC (9.98-11.88)
[2017-04-05 12:04] LABS: ACTIVATED PTT 25.4 SECONDS (26.9-34.4)
[2017-04-05 12:09] LABS: ALBUMIN 3.3 g/dl (3.4-5.0); ANION GAP 12 (8-16); CALCIUM 9.1 mg/dL (8.5-10.1); CO2 21 mmol/L (21-32); CREATININE 1.2 mg/dL (0.55-1.02); GLUCOSE,RANDOM 221 mg/dL (74-106); SGPT/ALT 22 U/L (12-78)
[2017-04-05 12:11] LABS: ALK PHOS 106 U/L (45-117); BILIRUBIN,TOTAL 0.5 mg/dL (0.2-1.0); TOT PROT 8.1 g/dl (6.4-8.2)
[2017-04-05 12:24] LABS: SGOT/AST 33 U/L (15-37)
[2017-04-05] MEDS ORDERED: ACETAMINOPHEN 325 MG TABLET (FP) PO PRN (13:04)
--- NOTE | 2017-04-05 13:05 | HP ---
Admitting History and Physical - Primary Care Physician PCP: Chuck Hercules - Admission Chief Complaint: dvt left leg History of Present Illness: ER HISTORY - History of Present Illness Initial Comments: 04/05/17 12:23 76 year old female, with PMH of Alzheimers dementia, HTN, HLD, s/p 2 cardiac stents, osteoarthritis, who presents to the emergency room BIBA complaining of 1 day of LLE swelling. The patients and clinical manager home care state that they noticed the swelling this morning. They also noticed a bump on the medial aspect of the left thigh. The patient is not ambulatory and uses a wheelchair. She had no witnessed falls. HPI is limited secondary to dementia. Allergies: NKDA PCP: Dr. Chuck Hercules Pt examined in ER spoke with UNPAID INTERN Pt has severe dementia- mostly bed bound, wheelchair bound. Found to have left leg DVT - pt will also get CTA to R/O PE as she was tachycardic in ER. History Source: Caregiver Limitations to Obtaining History: Dementia - Past Medical History ANALYST SALES: Yes: Dementia Cardiovascular: Yes: HTN Musculoskeletal: Yes: Other (osteoporosis) - Smoking History Smoking history: Never smoked Have you smoked in the past 12 months: No If you are a former smoker, when did you quit?: 1 year ago - Alcohol/Substance Use Hx Alcohol Use: No Home Medications - Allergies Allergies/Adverse Reactions: Allergies Allergy/AdvReac Type Severity Reaction Status Date / Time No Known Allergies Allergy Verified 02/24/17 10:49 - Home Medications Home Medications: Ambulatory Orders Lisinopril [Zestril] 40 mg PO DAILY 09/01/16 Memantine HCl [Namenda -] 10 mg PO DAILY 09/01/16 Multivitamin [Poly-Vitamin] 1 each PO DAILY 09/01/16 Carbidopa/Levodopa [Sinemet -] 1 each PO DAILY 03/21/17 Escitalopram Oxalate [Lexapro -] 5 mg PO DAILY 03/21/17 Acetaminophen [Tylenol] 325 mg PO TID PRN 04/05/17 Family Disease History - Family Disease History Family History: Unable to Obtain Review of Systems Unable to obtain ROS, reason: dementia Physical Examination Vital Signs: Vital Signs Temperature 98.7 F 04/05/17 10:51 Pulse Rate 75 04/05/17 10:51 Respiratory Rate 22 04/05/17 10:51 Blood Pressure 149/73 10/18/17 10:51 O2 Sat by Pulse Oximetry (%) 96 04/05/17 10:51 Constitutional: Yes: No Distress, Calm Cardiovascular: Yes: Regular Rate and Rhythm Respiratory: Yes: CTA Bilaterally Gastrointestinal: Yes: Normal Bowel Sounds, Soft. No: Distention, Tenderness Edema: Yes Edema: LLE: 2+ (tender+) Neurological: Yes: Alert Labs: CBC, BMP 04/05/17 11:30 04/05/17 11:30 Imaging - Results X-ray: Report Reviewed Ultrasound: Report Reviewed EKG: Report Reviewed (sinus tachycardia) Problem List - Problems (1) DVT (deep venous thrombosis) Code(s): I82.409 - ACUTE EMBOLISM AND THOMBOS UNSP DEEP VN UNSP LOWER EXTREMITY Qualifiers: DVT location: lower extremity Laterality: left (2) Dementia Code(s): F03.90 - UNSPECIFIED DEMENTIA WITHOUT BEHAVIORAL DISTURBANCE (3) Hyperlipidemia Code(s): E78.5 - HYPERLIPIDEMIA, UNSPECIFIED Assessment/Plan PLAN start Heparin drip leg feels warm CTA chest pending iv fluids Vascular eval
[2017-04-05] MEDS ORDERED: HEPARIN NA (PORCINE) 5,000 UNITS/ML 1ML VIAL IVPUSH PRN ×2 (13:07)
[2017-04-05] MEDS ORDERED: SODIUM CHLORIDE 1,000 ML IV SCH (13:15)
[2017-04-05] MEDS ORDERED: HEPARIN INFUSION - 500 ML IVPB ONE (13:48)
[2017-04-05] MEDS: HEPARIN INFUSION - 500 ML IVPB SCH (13:49)
[2017-04-06 07:57] LABS: BASOPHIL 0.8 % (0-2.0); EOSINOPHIL 0.8 % (0-4.5); MCH 28.2 pg (25.7-33.7); MCHC 32.4 g/dl (32.0-36.0); MEAN CELL VOLUME 86.9 fl (80-96); MEAN PLT VOLUME 9.5 fl (7.5-11.1); NEUTROPHILS 70.9 % (42.8-82.8); PLATELET COUNT 315 K/MM3 (134-434); RDW 15.7 % (11.6-15.6); WHITE BLOOD COUNT 12.5 K/mm3 (4.0-10.0)
[2017-04-06 08:24] LABS: ALBUMIN 2.7 g/dl (3.4-5.0); ANION GAP 7 (8-16); CALCIUM 8.7 mg/dL (8.5-10.1); CO2 26 mmol/L (21-32); GLUCOSE,RANDOM 119 mg/dL (74-106)
[2017-04-06 08:30] LABS: ALK PHOS 91 U/L (45-117); BILIRUBIN,TOTAL 0.4 mg/dL (0.2-1.0); CREATININE 0.9 mg/dL (0.55-1.02); SGOT/AST 14 U/L (15-37); SGPT/ALT 22 U/L (12-78); TOT PROT 7.1 g/dl (6.4-8.2)
[2017-04-06] MEDS: ESCITALOPRAM OXALATE 10 MG TABLET (FP) PO SCH (09:07)
[2017-04-06] MEDS: LISINOPRIL 20 MG TABLET (FP) PO SCH (09:07)
[2017-04-06] MEDS: MEMANTINE HCL 10 MG TABLET (FP) PO SCH (09:07)
[2017-04-06] MEDS: CARBIDOPA/LEVODOPA 10/100 TABLET (FP) PO SCH (09:15)
--- NOTE | 2017-04-06 10:47 | PN ---
Progress Note, Physician Chief Complaint: comfortable No distress - Current Medication List Current Medications: Active Medications Acetaminophen (Tylenol -) 325 mg PO TID PRN PRN Reason: PAIN Carbidopa/Levodopa (Sinemet -) 1 each PO DAILY [facility] Last Admin: 04/06/17 09:15 Dose: 1 each Escitalopram Oxalate (Lexapro -) 5 mg PO DAILY [facility] Last Admin: 04/06/17 09:07 Dose: 5 mg Heparin Sodium (Porcine) (Heparin -) 1,000 unit IVPUSH PRN PRN PRN Reason: Heparin Heparin Sodium (Porcine) (Heparin -) 5,000 unit IVPUSH PRN PRN PRN Reason: Heparin Sodium Chloride (Normal Saline -) 1,000 mls @ 83 mls/hr IV ASDIR [facility] Last Admin: 04/05/17 13:51 Dose: 83 mls/hr Heparin Sodium/Dextrose (Heparin Infusion -) 500 mls @ 16 mls/hr IVPB TITR RAFAL ; 800 UNITS/HR PRN Reason: Protocol Last Admin: 04/05/17 13:49 Dose: 16 mls/hr Lisinopril (Prinivil) 20 mg PO DAILY [facility] Last Admin: 04/06/17 09:07 Dose: 20 mg Memantine (Namenda -) 10 mg PO DAILY [facility] Last Admin: 04/06/17 09:07 Dose: 10 mg - Objective Vital Signs: Vital Signs Temperature 98.8 F 04/06/17 06:00 Pulse Rate 80 04/06/17 06:00 Respiratory Rate 20 04/06/17 06:00 Blood Pressure 133/70 04/06/17 06:00 O2 Sat by Pulse Oximetry (%) 97 04/06/17 09:00 Constitutional: Yes: No Distress Cardiovascular: Yes: Regular Rate and Rhythm Respiratory: Yes: Diminished Gastrointestinal: Yes: Normal Bowel Sounds, Soft. No: Distention, Tenderness Edema: Yes Edema: LLE: 2+ Labs: CBC, BMP 04/06/17 05:25 04/06/17 05:25 INR, PTT INR 1.26 (0.82-1.09) H 04/05/17 11:30 Problem List - Problems (1) DVT (deep venous thrombosis) Code(s): I82.409 - ACUTE EMBOLISM AND THOMBOS UNSP DEEP VN UNSP LOWER EXTREMITY Qualifiers: DVT location: lower extremity Laterality: left (2) Dementia Code(s): F03.90 - UNSPECIFIED DEMENTIA WITHOUT BEHAVIORAL DISTURBANCE (3) Hyperlipidemia Code(s): E78.5 - HYPERLIPIDEMIA, UNSPECIFIED Assessment/Plan PLAN on Heparin drip leg feels warm CTA chest -- PE and pulmonary infarction Vascular eval - if pt needs IVC filter vs long ter anticoagulation as she does not ambulate and poses a risk for recurrent DVT Pulmonary eval check labs aspiration precautions
--- NOTE | 2017-04-06 12:29 | CON.PULM ---
Consult Consult Specialty:: PULMONARY Referred by:: Dr. Rosas Reason for Consultation:: PE - History of Present Illness Chief Complaint: leg swelling History of Present Illness: 76yo female with h/o HTN, hyperlipidemia, CAD s/p stents, Alzheimer's Dementia, bed/chair bound who was admitted with increased left leg swelling x 1 day. Pt is nonverbal, unable to provide further history at this time. LE dopplers did show extensive LLE DVT. Subsequent CTA chest also showing bilateral pulmonary emboli and a peripheral infiltrate consistent with a pulmonary infarct. No fevers recorded. Pt not tachycardic or hypoxic. - History Source History Provided By: Medical Record Limitations to Obtaining History: Dementia - Past Medical History COATER SMOKING PIPE: Yes: Dementia Cardio/Vascular: Yes: HTN Musculoskeletal: Yes: Other (osteoporosis) - Alcohol/Substance Use Hx Alcohol Use: No - Smoking History Smoking history: Never smoked Have you smoked in the past 12 months: No If you are a former smoker, when did you quit?: 1 year ago Home Medications - Allergies Allergies/Adverse Reactions: Allergies Allergy/AdvReac Type Severity Reaction Status Date / Time No Known Allergies Allergy Verified 02/24/17 10:49 - Home Medications Home Medications: Ambulatory Orders Lisinopril [Zestril] 40 mg PO DAILY 09/01/16 Memantine HCl [Namenda -] 10 mg PO DAILY 09/01/16 Multivitamin [Poly-Vitamin] 1 each PO DAILY 09/01/16 Carbidopa/Levodopa [Sinemet -] 1 each PO DAILY 03/21/17 Escitalopram Oxalate [Lexapro -] 5 mg PO DAILY 03/21/17 Acetaminophen [Tylenol] 325 mg PO TID PRN 04/05/17 Review of Systems Unable to obtain ROS, reason: pt nonverbal Physical Exam Vital Sings: Vital Signs Temperature 98.8 F 04/06/17 06:00 Pulse Rate 80 04/06/17 06:00 Respiratory Rate 20 04/06/17 06:00 Blood Pressure 133/70 04/06/17 06:00 O2 Sat by Pulse Oximetry (%) 97 04/06/17 09:00 Constitutional: Yes: Calm Eyes: Yes: Conjunctiva Clear, EOM Intact HENT: Yes: Atraumatic, Normocephalic Neck: Yes: Supple, Trachea Midline Cardiovascular: Yes: Regular Rate and Rhythm Respiratory: Yes: Diminished (decreased breath sounds at the bases) ...Clubbing: No Gastrointestinal: Yes: Normal Bowel Sounds, Soft Edema: Yes (LLE) Labs: CBC, BMP 04/06/17 05:25 04/06/17 05:25 Imaging - Results Cat Scan: Report Reviewed, Image Reviewed (scattered bilateral pulmonary embloli , RLL wedge shaped infiltrate) Problem List - Problems (1) DVT (deep venous thrombosis) Code(s): I82.409 - ACUTE EMBOLISM AND THOMBOS UNSP DEEP VN UNSP LOWER EXTREMITY Qualifiers: DVT location: lower extremity Laterality: left (2) Pulmonary emboli Code(s): I26.99 - OTHER PULMONARY EMBOLISM WITHOUT ACUTE COR PULMONALE (3) Pulmonary infarct Code(s): I26.99 - OTHER PULMONARY EMBOLISM WITHOUT ACUTE COR PULMONALE (4) Hypertension Code(s): I10 - ESSENTIAL (PRIMARY) HYPERTENSION (5) Alzheimer's dementia Code(s): G30.9 - ALZHEIMER'S DISEASE, UNSPECIFIED Assessment/Plan LLE DVT Acute Pulmonary Emboli likely provoked from immobility Pulmonary Infarct HTN CAD Alzheimer's Dementia - will order echocardiogram although pt likely would not be a candidate for thrombolysis given her functional status and stable hemodynamics - O2 to keep SpO2 >90% - continue heparin gtt for now - after echocardiogram and confirming no invasive procedures, would transition to PO anticoagulation i.e. xarelto or eliquis Thank you for this consult Gerber Sood MD
--- NOTE | 2017-04-06 13:03 | EKG ---
Test Reason : Blood Pressure : / mmHG Vent. Rate : 101 BPM Atrial Rate : 101 BPM P-R Int : 144 ms QRS Dur : 072 ms QT Int : 322 ms P-R-T Axes : 031 -05 038 degrees QTc Int : 417 ms SINUS TACHYCARDIA OTHERWISE NORMAL ECG WHEN COMPARED WITH ECG OF 24-FEB-2017 10:30, NO SIGNIFICANT CHANGE WAS FOUND Confirmed by MYLA CHRISTOPHER MD ([id number]) on 04/06/2017 1:03:03 PM Referred By: Confirmed By:MYLA CHRISTOPHER MD
--- NOTE | 2017-04-06 14:11 | CONSULT ---
- Consultation REQUESTING PROVIDER: Michael Murray - Vascular Surgery CONSULT REQUEST: We have been asked to surgically evaluate this patient for confirmed LLE DVT. PCP: Chandni Rosas History Source: Caregiver Limitations to Obtaining History: Dementia HPI: Called to he 76 yo female with PMHx noted below. Sent in to [facility] ED for further evaluation of her LLE swelling. states he noticed swelling to said extremity x1 day. Per her sitting at bedside, states that she is mostly bed bound, wheelchair bound. No recent trauma/falls. She had a CTA which also confirms an acute pulmonary emboli. Pulmonology consult appreciated. On heparin drip. PMHx: Alzheimers dementia, HTN, HLD, Osteoporosis PSHx: Cardiac stents x2 Home Medications Lisinopril [Zestril] 40 mg PO DAILY 09/01/16 Memantine HCl [Namenda -] 10 mg PO DAILY 09/01/16 Multivitamin [Poly-Vitamin] 1 each PO DAILY 09/01/16 Carbidopa/Levodopa [Sinemet -] 1 each PO DAILY 03/21/17 Escitalopram Oxalate [Lexapro -] 5 mg PO DAILY 03/21/17 Acetaminophen [Tylenol] 325 mg PO TID PRN 04/05/17 Allergies: NKDA REVIEW OF SYSTEMS: Unable to obtain given her dementia status PE: GENERAL: Awake, in no acute distress. LUNGS: Clear to auscultation bilat anteriorly. No wheezes, and no crackles. No accessory muscle use. HEART: Regular rate and rhythm. No murmurs ABD: Soft, NT. ND LE: RLE unremarkable. LLE: pulses intact, warm, well-perfused. + swelling to left calf. (feet cool bilateral) Last Vital Signs Temp Pulse Resp BP Pulse Ox 98.8 F 80 20 133/70 97 04/06/17 06:00 04/06/17 06:00 04/06/17 06:00 04/06/17 06:00 04/06/17 09:00 CBC, BMP 04/06/17 05:25 04/06/17 05:25 INR, PTT INR 1.26 (0.82-1.09) H 04/05/17 11:30 Problem List - Problems (1) DVT (deep venous thrombosis) Assessment/Plan: Cont heparin drip There are no contraindications to oral AC therefore, we recommend oral AC x6 months No need for IVC filter Above plan discussed with Dr. Murray and agrees On behalf of Dr. Murray, thank you for the opportunity to participate in your patient's care. Code(s): I82.409 - ACUTE EMBOLISM AND THOMBOS UNSP DEEP VN UNSP LOWER EXTREMITY Qualifiers: DVT location: lower extremity Laterality: left (2) Pulmonary emboli Assessment/Plan: Pulmonology --> Dr. Sood following Code(s): I26.99 - OTHER PULMONARY EMBOLISM WITHOUT ACUTE COR PULMONALE Visit type - Case Type Case Type: ED Admission - Emergency Emergency Visit: Yes ED Registration Date: 04/05/17 Care time: The patient presented to the Emergency Department on the above date and was hospitalized for further evaluation of their emergent condition. - New patient This patient is new to me today: Yes Date on this admission: 04/06/17
[2017-04-06] MEDS: HEPARIN INFUSION - 500 ML IVPB SCH (18:08)
[2017-04-06] MEDS: APIXABAN 5 MG TABLET PO SCH (22:35)
[2017-04-07 07:18] LABS: MCH 28.4 pg (25.7-33.7); MCHC 32.5 g/dl (32.0-36.0); MEAN CELL VOLUME 87.2 fl (80-96); MEAN PLT VOLUME 9.9 fl (7.5-11.1); PLATELET COUNT 326 K/MM3 (134-434); WHITE BLOOD COUNT 10.4 K/mm3 (4.0-10.0)
--- NOTE | 2017-04-07 10:05 | PN ---
Progress Note (short form) - Note Progress Note: pt seen/ examined sitting in chair no complains chart reviewed Vital Signs Temp 97.6 F 04/07/17 02:00 Pulse 74 04/07/17 06:00 Resp 20 04/07/17 06:00 BP 99/80 04/07/17 06:00 Pulse Ox 96 04/06/17 21:00 Intake & Output 04/06/17 04/06/17 04/07/17 11:59 23:59 11:59 Intake Total 100 320 Balance 100 320 Intake: Oral 100 320 Other: Voiding Method Incontinent Incontinent # Unmeasured Voids Void 1 2 2 Bowel Movement No Active Medications Acetaminophen (Tylenol -) 325 mg PO TID PRN PRN Reason: PAIN Apixaban (Eliquis -) 10 mg PO BID [facility] Last Admin: 04/06/17 22:35 Dose: 10 mg Carbidopa/Levodopa (Sinemet -) 1 each PO DAILY [facility] Last Admin: 04/06/17 09:15 Dose: 1 each Escitalopram Oxalate (Lexapro -) 5 mg PO DAILY [facility] Last Admin: 04/06/17 09:07 Dose: 5 mg Lisinopril (Prinivil) 20 mg PO DAILY [facility] Last Admin: 04/06/17 09:07 Dose: 20 mg Memantine (Namenda -) 10 mg PO DAILY [facility] Last Admin: 04/06/17 09:07 Dose: 10 mg CBC, BMP 04/07/17 06:45 04/06/17 05:25 Physical Exam Constitutional: Yes: No Distress Cardiovascular: Yes: Regular Rate and Rhythm Respiratory: Yes: Diminished Gastrointestinal: Yes: Normal Bowel Sounds, Soft. No: Distention, Tenderness Edema: Yes-- + 1 Problem List - Problems (1) DVT (deep venous thrombosis) Code(s): I82.409 - ACUTE EMBOLISM AND THOMBOS UNSP DEEP VN UNSP LOWER EXTREMITY Qualifiers: DVT location: lower extremity Laterality: left (2) Dementia Code(s): F03.90 - UNSPECIFIED DEMENTIA WITHOUT BEHAVIORAL DISTURBANCE (3) Hyperlipidemia Code(s): E78.5 - HYPERLIPIDEMIA, UNSPECIFIED Assessment/Plan stable On Eliquis pulmonary to follow Anticipate d/c later today will follow
[2017-04-07] MEDS: LISINOPRIL 20 MG TABLET (FP) PO SCH ×2 (11:26→11:28)
[2017-04-07] MEDS: ESCITALOPRAM OXALATE 10 MG TABLET (FP) PO SCH (11:26)
[2017-04-07] MEDS: APIXABAN 5 MG TABLET PO SCH (11:26)
[2017-04-07] MEDS: MEMANTINE HCL 10 MG TABLET (FP) PO SCH (11:26)
[2017-04-07] MEDS: CARBIDOPA/LEVODOPA 10/100 TABLET (FP) PO SCH (11:27)
--- NOTE | 2017-04-07 11:58 | PN ---
Progress Note (short form) - Note Progress Note: Stable overnight on Eliquis. No acute events documented. Intake & Output 04/04/17 04/05/17 04/06/17 04/07/17 23:59 23:59 23:59 23:59 Intake Total 505 420 Balance 505 420 Weight 116 lb 0.01 oz Last Vital Signs Temp Pulse Resp BP Pulse Ox 97.6 F 74 20 99/80 96 04/07/17 02:00 04/07/17 06:00 04/07/17 06:00 04/07/17 06:00 04/06/17 21:00 Active Medications Acetaminophen (Tylenol -) 325 mg PO TID PRN PRN Reason: PAIN Apixaban (Eliquis -) 10 mg PO BID [facility] Last Admin: 04/07/17 11:26 Dose: 10 mg Carbidopa/Levodopa (Sinemet -) 1 each PO DAILY [facility] Last Admin: 04/07/17 11:27 Dose: 1 each Escitalopram Oxalate (Lexapro -) 5 mg PO DAILY [facility] Last Admin: 04/07/17 11:26 Dose: 5 mg Lisinopril (Prinivil) 20 mg PO DAILY [facility] Last Admin: 04/07/17 11:28 Dose: Not Given Memantine (Namenda -) 10 mg PO DAILY [facility] Last Admin: 04/07/17 11:26 Dose: 10 mg Constitutional: Yes: NAD Eyes: Yes: Conjunctiva Clear, EOM Intact HENT: Yes: Atraumatic, Normocephalic Neck: Yes: Supple, Trachea Midline Cardiovascular: Yes: Regular Rate and Rhythm Respiratory: Yes: Diminished at the bases ...Clubbing: No Gastrointestinal: Yes: Normal Bowel Sounds, Soft Edema: Yes (LLE) Labs: Laboratory Results - last 24 hr 04/07/17 04/07/17 06:45 06:45 WBC 10.4 H RBC 3.58 L Hgb 10.2 L Hct 31.2 L MCV 87.2 MCH 28.4 MCHC 32.5 RDW 16.0 H Plt Count 326 MPV 9.9 PTT (Actin FS) 66.4 H Problem List - Problems (1) DVT (deep venous thrombosis) Code(s): I82.409 - ACUTE EMBOLISM AND THOMBOS UNSP DEEP VN UNSP LOWER EXTREMITY Qualifiers: DVT location: lower extremity Laterality: left (2) Pulmonary emboli Code(s): I26.99 - OTHER PULMONARY EMBOLISM WITHOUT ACUTE COR PULMONALE (3) Pulmonary infarct Code(s): I26.99 - OTHER PULMONARY EMBOLISM WITHOUT ACUTE COR PULMONALE (4) Hypertension Code(s): I10 - ESSENTIAL (PRIMARY) HYPERTENSION (5) Alzheimer's dementia Code(s): G30.9 - ALZHEIMER'S DISEASE, UNSPECIFIED Assessment/Plan LLE DVT Acute Pulmonary Emboli likely provoked from immobility Pulmonary Infarct HTN CAD Alzheimer's Dementia Eliquis 10mg BID x 7 days then 5mg BID : Will need for about 6 months O2 as needed No Pulmonary contraindication for D/C planning Dr Mayfield
[2017-04-07 15:43] VITALS: BP 102/52; PULSE 82; TEMP 98.2
--- NOTE | 2017-04-10 20:52 | DS ---
Physical Examination Vital Signs: Vital Signs Temperature 98.2 F 04/07/17 14:00 Pulse Rate 82 04/07/17 14:00 Respiratory Rate 20 04/07/17 10:00 Blood Pressure 102/52 04/07/17 14:00 O2 Sat by Pulse Oximetry (%) 97 04/07/17 10:00 Findings/Remarks: see 04/07 progress note Labs: CBC, BMP 04/07/17 06:45 04/06/17 05:25 Discharge Summary Reason For Visit: DEEP VEIN THROMBOSIS Hospital Course: 76 year old female, with PMH of Alzheimers dementia, HTN, HLD, s/p 2 cardiac stents, osteoarthritis, who presented to the emergency room BIBA complaining of 1 day of LLE swelling. pt found to have LLE DVT Further work also showed --Acute Pulmonary Emboli likely provoked from immobility Pulmonary Infarct Pt started on heparin pulmonary followed as well as cardio Echo also done - essentially ok Vascular consult also taken- no surgical intervention advised Pt discharged on Eliquis 10mg BID x 7 days then 5mg BID : Will need for about 6 months pt to follow with her pmd Condition: Stable - Instructions Disposition: HOME - Home Medications Comprehensive Discharge Medication List: Ambulatory Orders Lisinopril [Zestril] 40 mg PO DAILY 09/01/16 Memantine HCl [Namenda -] 10 mg PO DAILY 09/01/16 Multivitamin [Poly-Vitamin] 1 each PO DAILY 09/01/16 Carbidopa/Levodopa [Sinemet -] 1 each PO DAILY 03/21/17 Escitalopram Oxalate [Lexapro -] 5 mg PO DAILY 03/21/17 Acetaminophen [Tylenol] 325 mg PO TID PRN 04/05/17 Apixaban [Eliquis] 5 mg PO BID #90 tablet 04/06/17
== END 2017-04-07 15:50 | disposition home or self-care (01) | DRG 299 ==
LOC: JER 10:40 → JERBED 13:13 → J4W 19:57
PROVIDERS: ADMIT Internal Medicine; ATTEND Internal Medicine
DX: I82.412 Acute embolism and thrombosis of left femoral vein (principal); I26.99 Other pulmonary embolism without acute cor pulmonale; G30.9 Alzheimer's disease, unspecified; F02.80 Dementia in other diseases classified elsewhere, unspecified severity, without behavioral disturbance, psychotic disturbance, mood disturbance, and anxiety; E78.5 Hyperlipidemia, unspecified; Z74.01 Bed confinement status; Z99.3 Dependence on wheelchair; M81.0 Age-related osteoporosis without current pathological fracture
CPT/HCPCS: 36415; 71275-TC; 73502-TC-LT; 73552-TC-LT; 73562-TC-LT; 73590-TC-LT; 80053; 82272; 85025; 85027; 85610; 85730; 93005; 93010; 93306-TC; 93971-TC; 99282-25; J1644

== ENCOUNTER 2021-12-09 17:16 | Inpatient (IN) | payer OTHER ==
[2021-12-09] MEDS ORDERED: ACETAMINOPHEN 1000 MG/100 ML BAG IVPB ONE (18:35)
[2021-12-09] MEDS ORDERED: DIPHTH,PERTUSS(ACELL),TET 0.5 ML DISP.SYRIN IM ONE ×2 (18:39→20:37)
[2021-12-09 20:22] LABS: BASO % 0.4 % (0-2.0); EOS % 0.4 % (0-4.5); HEMATOCRIT 38.6 % (32.4-45.2); HEMOGLOBIN 12.7 GM/dL (10.7-15.3); LYMPH % 6.6 % (8-40); MCH 31.4 pg (25.7-33.7); MEAN CELL VOLUME 95.1 fl (80-96); MEAN PLT VOLUME 10.2 fl (7.5-11.1); MONO % 4.6 % (3.8-10.2); PLATELET COUNT 277 10^3/uL (134-434); RBC 4.06 M/mm3 (3.60-5.2); RDW 14.5 % (11.6-15.6); WHITE BLOOD COUNT 14.3 K/mm3 (4.0-10.0)
[2021-12-09] MEDS ORDERED: ACETAMINOPHEN INJECTION 100 ML IVPB ONE (20:37)
[2021-12-09 20:43] LABS: CALCIUM 9.5 mg/dL (8.5-10.1)
[2021-12-09 20:44] LABS: ALBUMIN 3.6 g/dl (3.4-5.0); BLOOD UREA NITROGEN 15.5 mg/dL (7-18)
[2021-12-09 20:47] LABS: CREATININE 0.7 mg/dL (0.55-1.3)
[2021-12-09 20:48] LABS: TOT PROT 8.1 g/dl (6.4-8.2)
[2021-12-09 20:49] LABS: BILIRUBIN,TOTAL 0.3 mg/dL (0.2-1)
[2021-12-09 22:00] LABS: PH,URINE 5.5 (5.0-8.0); URINE APPEARANCE CLOUDY; URINE BILIRUBIN NEGATIVE (NEGATIVE); URINE COLOR DK YELLOW; URINE GLUCOSE (UA) NEGATIVE (NEGATIVE); URINE KETONE 2+ (NEGATIVE); URINE LEUK ESTERASE NEGATIVE (NEGATIVE); URINE NITRITE NEGATIVE (NEGATIVE); URINE PROTEIN TRACE (NEGATIVE)
[2021-12-09] MEDS ORDERED: ASPIRIN 81 MG CHEWABLE TABLETS PO ONE (23:44)
[2021-12-10] MEDS ORDERED: ASPIRIN 81 MG CHEWABLE TABLETS ONE (00:14)
[2021-12-10] MEDS ORDERED: ASPIRIN 300 MG SUPP.RECT RC ONE (02:28)
[2021-12-10] MEDS: ASPIRIN SUPPOSITORY 600 MG SUPP.RECT PR ONE ×2 (02:35→04:50)
[2021-12-10] MEDS ORDERED: ASPIRIN SUPPOSITORY 600 MG SUPP.RECT PR ONE (04:33)
[2021-12-10 07:53] LABS: BASO % 0.6 % (0-2.0); EOS % 0.8 % (0-4.5); HEMATOCRIT 40.3 % (32.4-45.2); HEMOGLOBIN 13.2 GM/dL (10.7-15.3); LYMPH % 12.8 % (8-40); MCH 31.2 pg (25.7-33.7); MCHC 32.9 g/dl (32.0-36.0); MEAN CELL VOLUME 95.1 fl (80-96); MEAN PLT VOLUME 10.2 fl (7.5-11.1); MONO % 9.4 % (3.8-10.2); NEUT % 76.4 % (42.8-82.8); PLATELET COUNT 278 10^3/uL (134-434); RBC 4.24 M/mm3 (3.60-5.2); RDW 14.4 % (11.6-15.6); WHITE BLOOD COUNT 11.1 K/mm3 (4.0-10.0)
[2021-12-10 08:14] LABS: ALBUMIN 3.5 g/dl (3.4-5.0)
[2021-12-10 08:16] LABS: CREATININE 0.6 mg/dL (0.55-1.3)
[2021-12-10 08:17] LABS: BILIRUBIN,TOTAL 0.8 mg/dL (0.2-1); TOT PROT 7.9 g/dl (6.4-8.2)
[2021-12-10] MEDS ORDERED: METOPROLOL TARTRATE 25 MG TABLET (FP) PO SCH (10:00)
[2021-12-10 10:10] LABS: MAGNESIUM 2.3 mg/dL (1.8-2.4)
[2021-12-10] MEDS: METOPROLOL TARTRATE 5 MG/5 ML VIAL IVPUSH SCH ×4 (11:42→21:39)
[2021-12-10] MEDS: CARBIDOPA/LEVODOPA 10/100 TABLET (FP) PO SCH ×2 (15:15→21:22)
[2021-12-10] MEDS: DEXTROSE 5%-0.45% SALINE 1,000 ML IV SCH (17:00)
[2021-12-10] MEDS: ASPIRIN 300 MG SUPP.RECT PR SCH (18:00)
[2021-12-11] MEDS: METOPROLOL TARTRATE 5 MG/5 ML VIAL IVPUSH SCH ×7 (01:30→21:42)
[2021-12-11] MEDS: CARBIDOPA/LEVODOPA 10/100 TABLET (FP) PO SCH ×3 (05:29→21:38)
[2021-12-11] MEDS: POLYETHYLENE GLYCOL (HEALTHYLAX) 3350 17 GM PACKET PO SCH (10:37)
[2021-12-11] MEDS: ESCITALOPRAM OXALATE 10 MG TABLET PO SCH (10:38)
[2021-12-11] MEDS: risperiDONE 1 MG TABLET PO SCH (10:38)
[2021-12-11] MEDS: MEMANTINE HCL 10 MG TABLET (FP) PO SCH (10:38)
[2021-12-11] MEDS: ASPIRIN 300 MG SUPP.RECT PR SCH (10:55)
[2021-12-11] MEDS: DEXTROSE 5%-0.45% SALINE 1,000 ML IV SCH (16:59)
[2021-12-11 23:05] VITALS: BMI 18.1
[2021-12-12] MEDS: METOPROLOL TARTRATE 5 MG/5 ML VIAL IVPUSH SCH ×6 (02:00→21:57)
[2021-12-12] MEDS ORDERED: ACETAMINOPHEN 1000 MG/100 ML BAG IVPB ONE (06:32)
[2021-12-12] MEDS: CARBIDOPA/LEVODOPA 10/100 TABLET (FP) PO SCH ×3 (07:06→21:58)
[2021-12-12] MEDS: ASPIRIN 300 MG SUPP.RECT PR SCH (09:32)
[2021-12-12] MEDS: MEMANTINE HCL 10 MG TABLET (FP) PO SCH (09:35)
[2021-12-12] MEDS: POLYETHYLENE GLYCOL (HEALTHYLAX) 3350 17 GM PACKET PO SCH (09:35)
[2021-12-12] MEDS: risperiDONE 1 MG TABLET PO SCH (09:35)
[2021-12-12] MEDS: ESCITALOPRAM OXALATE 10 MG TABLET PO SCH (09:35)
[2021-12-12] MEDS: DEXTROSE 5%-0.45% SALINE 1,000 ML IV SCH (22:00)
[2021-12-13] MEDS: METOPROLOL TARTRATE 5 MG/5 ML VIAL IVPUSH SCH ×6 (01:25→22:42)
[2021-12-13] MEDS: CARBIDOPA/LEVODOPA 10/100 TABLET (FP) PO SCH ×3 (06:21→22:41)
[2021-12-13] MEDS: ESCITALOPRAM OXALATE 10 MG TABLET PO SCH (09:56)
[2021-12-13] MEDS: POLYETHYLENE GLYCOL (HEALTHYLAX) 3350 17 GM PACKET PO SCH (09:56)
[2021-12-13] MEDS: risperiDONE 1 MG TABLET PO SCH (09:57)
[2021-12-13] MEDS: MEMANTINE HCL 10 MG TABLET (FP) PO SCH (09:57)
[2021-12-13] MEDS: ASPIRIN 300 MG SUPP.RECT PR SCH (10:05)
[2021-12-13] MEDS: DEXTROSE 5%-0.45% SALINE 1,000 ML IV SCH (15:00)
[2021-12-14] MEDS: METOPROLOL TARTRATE 5 MG/5 ML VIAL IVPUSH SCH ×3 (02:43→11:35)
[2021-12-14] MEDS: CARBIDOPA/LEVODOPA 10/100 TABLET (FP) PO SCH ×3 (06:01→21:53)
[2021-12-14] MEDS: POLYETHYLENE GLYCOL (HEALTHYLAX) 3350 17 GM PACKET PO SCH (10:00)
[2021-12-14] MEDS: ESCITALOPRAM OXALATE 10 MG TABLET PO SCH (10:00)
[2021-12-14] MEDS: MEMANTINE HCL 10 MG TABLET (FP) PO SCH (10:00)
[2021-12-14] MEDS: risperiDONE 1 MG TABLET PO SCH (10:00)
[2021-12-14] MEDS: ASPIRIN 300 MG SUPP.RECT PR SCH (11:35)
[2021-12-14] MEDS ORDERED: METOPROLOL TARTRATE 25 MG TABLET (FP) PO SCH (11:45)
[2021-12-14 12:10] LABS: BASO % 0.4 % (0-2.0); EOS % 0.3 % (0-4.5); HEMATOCRIT 33.3 % (32.4-45.2); HEMOGLOBIN 11.4 GM/dL (10.7-15.3); LYMPH % 4.2 % (8-40); MCH 32.4 pg (25.7-33.7); MCHC 34.1 g/dl (32.0-36.0); MEAN CELL VOLUME 94.9 fl (80-96); MEAN PLT VOLUME 10.6 fl (7.5-11.1); MONO % 7.4 % (3.8-10.2); NEUT % 87.7 % (42.8-82.8); PLATELET COUNT 223 10^3/uL (134-434); RBC 3.51 M/mm3 (3.60-5.2); RDW 13.8 % (11.6-15.6)
[2021-12-14] MEDS ORDERED: METOPROLOL TARTRATE 25 MG TABLET (FP) PO ONE (12:15)
[2021-12-14 12:34] LABS: CHLORIDE 108 mmol/L (98-107); SODIUM 144 mmol/L (136-145)
[2021-12-14 12:36] LABS: CALCIUM 8.8 mg/dL (8.5-10.1)
[2021-12-14 12:37] LABS: CO2 29 mmol/L (21-32); GLUCOSE,RANDOM 209 mg/dL (74-106)
[2021-12-14 12:40] LABS: SGOT/AST 24 U/L (15-37); SGPT/ALT 20 U/L (13-61)
[2021-12-14 12:41] LABS: CREATININE 0.7 mg/dL (0.55-1.3)
[2021-12-14 12:42] LABS: BILIRUBIN,TOTAL 0.6 mg/dL (0.2-1); TOT PROT 6.6 g/dl (6.4-8.2)
[2021-12-14 12:43] LABS: ALK PHOS 80 U/L (45-117)
[2021-12-14 12:53] LABS: ALBUMIN 2.7 g/dl (3.4-5.0); ANION GAP 8 MMOL/L (8-16)
[2021-12-14] MEDS: DEXTROSE 5%-0.45% SALINE 1,000 ML with POTASSIUM CHLORIDE 20 MEQ IV SCH (15:21)
[2021-12-14] MEDS: KCL 10 MEQ IVPB 10 MEQ/100 ML INFUS.BAG IVPB SCH ×3 (15:21→17:48)
[2021-12-14] MEDS: ATORVASTATIN CA 10 MG TABLET (FP) PO SCH (21:53)
[2021-12-15] MEDS: CARBIDOPA/LEVODOPA 10/100 TABLET (FP) PO SCH ×3 (06:32→22:12)
[2021-12-15] MEDS: POLYETHYLENE GLYCOL (HEALTHYLAX) 3350 17 GM PACKET PO SCH (09:26)
[2021-12-15] MEDS: risperiDONE 1 MG TABLET PO SCH (09:26)
[2021-12-15] MEDS: ESCITALOPRAM OXALATE 10 MG TABLET PO SCH (09:27)
[2021-12-15] MEDS: MEMANTINE HCL 10 MG TABLET (FP) PO SCH (09:27)
[2021-12-15] MEDS: DEXTROSE 5%-0.45% SALINE 1,000 ML with POTASSIUM CHLORIDE 20 MEQ IV SCH ×2 (09:39→15:47)
[2021-12-15] MEDS ORDERED: ASPIRIN 81 MG CHEWABLE TABLETS PO SCH (10:00)
[2021-12-15] MEDS: METOPROLOL TARTRATE 25 MG TABLET (FP) PO SCH ×2 (12:04→23:12)
[2021-12-15] MEDS ORDERED: POTASSIUM CHLORIDE ORAL LIQUID 20 MEQ/15 ML PO ONE ×2 (14:44→17:30)
[2021-12-15] MEDS: KCL 10 MEQ IVPB 10 MEQ/100 ML INFUS.BAG IVPB SCH ×3 (17:52→20:17)
[2021-12-15] MEDS: ATORVASTATIN CA 10 MG TABLET (FP) PO SCH (22:12)
[2021-12-16] MEDS: CARBIDOPA/LEVODOPA 10/100 TABLET (FP) PO SCH (05:43)
[2021-12-16 06:05] VITALS: BP 148/72; PULSE 85; TEMP 98.9
== END 2021-12-16 11:50 | disposition home or self-care (01) | DRG 280 ==
LOC: JER 17:16 → JERBED 12-10 02:45 → OBSVTOIN 12-10 04:21 → UNDOADMOB 12-10 04:21 → INTOOBSV 12-10 04:21 → JERBED 12-10 04:21 → J4W 12-10 09:38
PROVIDERS: ADMIT Internal Medicine; ATTEND Internal Medicine
DX: I21.4 Non-ST elevation (NSTEMI) myocardial infarction (principal); E43 Unspecified severe protein-calorie malnutrition; Z68.1 Body mass index [BMI] 19.9 or less, adult; G30.9 Alzheimer's disease, unspecified; F02.80 Dementia in other diseases classified elsewhere, unspecified severity, without behavioral disturbance, psychotic disturbance, mood disturbance, and anxiety; G20 Parkinson's disease; E78.5 Hyperlipidemia, unspecified; I25.10 Atherosclerotic heart disease of native coronary artery without angina pectoris; I10 Essential (primary) hypertension; R04.0 Epistaxis; J34.2 Deviated nasal septum; S02.2XXA Fracture of nasal bones, initial encounter for closed fracture; R77.8 Other specified abnormalities of plasma proteins; M81.8 Other osteoporosis without current pathological fracture; S01.81XA Laceration without foreign body of other part of head, initial encounter; S06.890A Other specified intracranial injury without loss of consciousness, initial encounter; W07.XXXA Fall from chair, initial encounter; Y92.098 Other place in other non-institutional residence as the place of occurrence of the external cause; Z86.718 Personal history of other venous thrombosis and embolism; Z86.711 Personal history of pulmonary embolism; Z95.5 Presence of coronary angioplasty implant and graft; Z74.01 Bed confinement status; Z99.3 Dependence on wheelchair
CPT/HCPCS: 0241U-QW; 36415; 70450-TC; 70486-TC; 71045-TC-FY; 72125-TC; 80053; 80061; 81003; 83735; 84132; 84443; 84484; 85025; 87086; 90715; 93005; 93010; 93306-TC; 99285-25; G0378; J2794